=== PATIENT | female | born 1955 | race Caucasian/White ===

== ENCOUNTER 2021-07-15 16:12 | Emergency (ER) | payer MEDICARE, MEDICAID, SELFPAY ==
[2021-07-15 16:13] VITALS: BP 117/70; PULSE 84; RESP 18; TEMP 37.2; O2SAT 98; BMI 50.1
--- NOTE | 2021-07-15 16:55 | ED.VIS.DYS ---
HPI History of Present Illness Chief Complaint: Cough Narrative Narrative: 1 week history clear productive cough started wheezing at night. Denies history of asthma or COPD. Smoked back in 1970s. States bronchitis yearly. Denies fevers headache sore throat myalgias vomiting or diarrhea. Nonvaccinated for Covid. Denies any loss of taste or smell. History of rheumatoid arthritis on hydroxychloroquine and sulfasalazine. History of hypothyroidism. Patient recently moved to [facility].. Prior similar symptoms: Yes PFSH PFS Medical History (Updated 07/15/21 @ 17:[address] Will Carrillo DO) Hypothyroidism Rheumatoid arthritis Home Medications azithromycin 250 mg PO DAILY #4 tab 07/15/21 [Rx Last Taken Unknown] Allergy/AdvReac Type Severity Reaction Status Date / Time morphine Allergy Angioedema Verified 07/15/21 17:12 Social History Smoking Status: Former smoker ROS ROS ED Constitutional Constitutional ED: Denies chills, fever(s) or sweats Eyes Eyes: Denies change in vision ENT ENT ED: Denies dysphagia or sore throat Cardiovascular Cardiovascular: Denies chest pain, leg edema, palpitations or racing heartbeat Respiratory/Chest Respiratory/Chest: Reports cough; Denies dyspnea or dyspnea on exertion Gastrointestinal Gastrointestinal: Denies abdominal pain, diarrhea, nausea or vomiting Genitourinary Genitourinary ED: Denies dysuria, hematuria or urinary frequency Musculoskeletal Musculoskeletal: Denies back pain, extremity pain or neck pain Integumentary Denies rash or wounds Neurologic Neurologic: Denies headache(s), paresthesias or weakness EXAM Physical Exam Const Vital Signs: 07/15/21 16:13 07/15/21 17:13 Temperature 99.0 F Temperature Source Temporal Pulse Rate 84 Respiratory Rate 18 Respiratory Effort Normal Non-Labored Respiratory Depth Normal Respiratory Pattern Normal Blood Pressure 117/70 Blood Pressure Mean 85 Pulse Ox 98 Oxygen Delivery Method Room Air Positive well nourished and well developed Constitutional Narrative: Occasional coughing speaking in full sentences. No distress. General Appearance ED: well developed and NAD HEENT Reports moist mucous membranes normocephalic and atraumatic Eyes PERRL, EOMs intact bilaterally and conjunctivae normal General Eye ED: Yes normal appearance of both eyes Neck no lymphadenopathy and supple General: Negative for tenderness Chest Wall Chest: Negative for tenderness Resp normal respiratory effort and normal air movement Effort and Inspection: symmetric chest movement; Negative for respiratory distress Cardio regular rate, regular rhythm and no murmurs Peripheral Pulses: pulses 2+ throughout GI normal to inspection, nondistended, normoactive bowel sounds and non-tender Palpation: Negative for guarding or rebound tenderness present Back/Spine no CVA tenderness and no thoracic nor lumbar tenderness Extremity normal to inspection General Extremety ED: Negative for edema or tenderness General Extremity: Negative for edema Neuro oriented x3 and no sensory deficits noted Sensorium / Orientation: awake and alert Skin no rashes or lesions noted and no wounds MDM MDM MDM Narrative Medical decision making narrative: Patient vitals stable pulse ox 98%. Mild productive cough for a week. No other symptoms. Covid testing negative. Chest x-ray negative. With patient's immunosuppression history on medication secondary rheumatoid arthritis will cover with antibiotics. Zithromax started. With her wheezing complaints, MDI inhaler dispense with the patient to use. She states she does have a PCP. She will follow as an outpatient. All questions were answered. Radiography Chest X-Ray - ED: 1 View, Read by ED Physician and Read by Radiologist Diagnostic Testing: Clinical Impression(s) from Imaging Studies Chest X-Ray 07/15/21 17:04 IMPRESSION: Normal x-ray examination of the chest. Electronically Signed: Malorie Krause MD at 17:30 EDT Tel , Service support , Discharge Plan Triage Chief Complaint: Cough ED Provider: Will Carrillo Dx/Rx/DC Orders Clinical Impression: Acute bronchitis, Immunosuppression due to drug therapy, Rheumatoid arthritis Instructions: Acute Bronchitis Prescriptions: New azithromycin [azithromycin] 250 MG tablet 250 mg PO DAILY Qty: 4 RF: 0 Primary Care Provider: Care Physician,No Primary Referrals: Care Physician,No Primary [Primary Care Provider] - Activity Restrictions/Additional Instructions: Chest x-ray negative. Covid testing negative. Take medication as prescribed. Use inhaler every 4 hours 1 to 2 puffs as needed for wheezing. Follow-up with your doctor. Disposition Disposition: Home, Self Care
--- NOTE | 2021-07-15 17:04 | RAD_ITS ---
STUDY: X-RAY CHEST REASON FOR EXAM: Female, 66 years old. cough TECHNIQUE: Frontal portable view of the chest COMPARISON: None. FINDINGS: The lungs are clear and expanded. There is no demonstrated pleural abnormality. Normal size heart. Normal mediastinum and addison. Normal visualized pulmonary arteries. Normal visualized aortic arch and descending thoracic aorta. Normal visualized thoracic spine. Normal visualized ribs, clavicles, and shoulders. There is no demonstrated abnormality of the visualized soft tissue structures of the upper abdomen. RAD/Chest 1 View (Portable) IMPRESSION: Normal x-ray examination of the chest. Electronically Signed: Malorie Krause MD at 17:30 EDT Tel , Service support ,
[2021-07-15] MEDS: Azithromycin 250 MG Tablet 500 MG PO (17:54)
== END 2021-07-15 18:01 | disposition home or self-care (01) ==
PROVIDERS: Emergency Provider Emergency Medicine
DX: J20.9 Acute bronchitis, unspecified (principal); D84.821 Immunodeficiency due to drugs; M06.9 Rheumatoid arthritis, unspecified; Z79.899 Other long term (current) drug therapy; Z87.891 Personal history of nicotine dependence
CPT/HCPCS: 71045; 87426; 94640; 99283

== ENCOUNTER 2021-09-08 10:10 | Inpatient (IN) | payer MEDICARE, MEDICAID, SELFPAY ==
[2021-09-08] VITALS (14 sets, daily range): BP systolic 127–144; BP diastolic 69–85; PULSE 63–93; RESP 15–24; TEMP 36.6–37.1; O2SAT 84–96; BMI 49.2; BMI 47.5
--- NOTE | 2021-09-08 11:06 | EKG12_ITS ---
Test Reason : SOB Blood Pressure : / mmHG Vent. Rate : 088 BPM Atrial Rate : 088 BPM P-R Int : 134 ms QRS Dur : 076 ms QT Int : 376 ms P-R-T Axes : 005 -28 028 degrees QTc Int : 454 ms Normal sinus rhythm Normal ECG Confirmed by GABRIELLE MUJICA, CLARE ([id number]), script editor BOB EDGAR ([id number]) on 09/10/2021 10:19:51 AM Referred By: SERGEI Confirmed By:CLARE ANTHONY MD
--- NOTE | 2021-09-08 11:06 | RAD_ITS ---
History: cough EXAMINATION/TECHNIQUE: XR Chest 1 View: Portable COMPARISON: July 15, 2021 FINDINGS: LINES/DEVICES: None. LUNGS: Airspace opacification noted throughout the left lung and within the right upper lobe consistent with pneumonia. No pneumothorax. MEDIASTINUM AND CARDIOVASCULAR STRUCTURES: Cardiac silhouette not enlarged. Central airways and mediastinal contour are unremarkable. BONES AND SOFT TISSUES: Unremarkable. RAD/Chest 1 View (Portable) IMPRESSION: Bilateral pneumonia. at 1137 Reported and signed by: Trenton Arenas MD Electronically Signed: Trenton Arenas MD at 11:36 EST Tel , Service support ,
[2021-09-08 11:21] LABS: Absolute Lymphocyte Count 0.83 X10^3/uL (0.83-4.51); Absolute Neutrophil Count 4.7 X10^3/uL (2.0-7.7); Basophil# 0.01 X10^3/uL; Basophil% 0.2 % (0-1); Hematocrit 43.7 % (37-47); Hemoglobin 13.9 g/dL (12.0-15.0); Lymphocyte # 0.83 X10^3/ul (0.83-4.51); Lymphocyte % 13.9 % (19-41); Mean Corp Hgb Conc 31.8 g/dL (32-36); Mean Corpuscular Hgb 29.2 pg (27.0-32.0); Mean Corpuscular Volume 91.8 fL (81-99); Mean Platelet Vol. 10.9 fl (6.2-12.0); Monocyte# 0.34 X10^3/uL; Monocyte% 5.7 % (0-10); NRBC Flagged by Analyzer 0 % (0-5); Neutrophil # 4.65 X10^3/uL (2.7-7.7); Platelet Count 103 K/mm3 (150-450); RBC Distribution Width CV 14.3 % (11.6-14.6); RBC Distribution Width SD 48.4 fl (35.1-43.9); Red Blood Count 4.76 M/mm3 (4.2-5.4)
[2021-09-08 11:33] LABS: D-Dimer Quantitative (DVT/PE) 2.15 FEU/ug/m (0.27-0.49)
--- NOTE | 2021-09-08 11:34 | CT_ITS ---
EXAM: CT ANGIOGRAPHY CHEST WITHOUT AND WITH INTRAVENOUS CONTRAST : 1955 CLINICAL INDICATION: chest pain TECHNIQUE: Helically acquired angiography images were obtained of the chest without and with intravenous contrast. This CT exam was performed using one or more of the following dose reduction techniques: automated exposure control, adjustment of the mA and/or kV according to patient size, and/or use of iterative reconstruction technique. This report was created using [email or web address] report generation technology. MIP reconstructed images were created and reviewed. CONTRAST: IV 100mL [id number] COMPARISON: Chest radiograph September 08, 2021 FINDINGS: PULMONARY ARTERIES: Unremarkable. Normal in caliber. No evidence of pulmonary embolism. AORTA: Unremarkable. Normal in caliber. No evidence of dissection. GREAT VESSELS OF AORTIC ARCH: Unremarkable. Normal in caliber. No evidence of dissection. LUNGS AND PLEURAL SPACES: Airspace opacification noted within the lungs bilaterally consistent with pneumonia and compatible with Covid infection. No mass. No pleural effusion or thickening. HEART: Unremarkable. Heart size is normal. No pericardial effusion. No signs of right heart strain, ratio of right ventricle to left ventricle measures less than 1. MEDIASTINUM: A small hiatal hernia is present. No mediastinal or hilar adenopathy. Esophagus is unremarkable. THYROID: Unremarkable. No thyroid lesions. BONES/JOINTS: Unremarkable. No suspicious lytic or blastic abnormality. LIVER: Partially visualized liver and spleen appear prominent in size. GALLBLADDER AND BILE DUCTS: 2.5 cm calcified gallstone is noted. CT/CTA Chest W/WO Contrast IMPRESSION: 1. Bilateral pneumonia. 2. No evidence of acute pulmonary embolism. 3. Small hiatal hernia. 4. Cholelithiasis. 5. Hepatosplenomegaly. Individualized dose optimization techniques were used for this CT. at 1245 Reported and signed by: Trenton Arenas MD Electronically Signed: Trenton Arenas MD at 12:43 EST Tel , Service support ,
[2021-09-08 11:37] LABS: ALB/GLOB Ratio 0.7 RATIO (0.9-2.4); AST(SGOT) 57 U/L (15-37); Alanine Aminotransfer ALT/SGPT 63 U/L (13-56); Alkaline Phosphatase 50 U/L (45-117); Anion Gap 10 (5-15); BUN 13 mg/dL (7-18); BUN/Creat Ratio 13.1 RATIO (10-20); Calcium,Total 8.3 mg/dL (8.5-10.1); Chloride 105 mmol/L (98-107); EST Glomerular Filtration Rate 59 mL/min (>60); Est Glom Filt Rate - Afr Amer 72 mL/min (>60); Estimated Creatinine Clearance 41.19 ml/min; Globulin 4.2 g/dL (2.2-4.2); Glucose 104 mg/dL (74-106); Potassium 3.9 mmol/L (3.5-5.1); Protein, Total 7.2 g/dL (6.4-8.2); Sodium Level 140 mmol/L (136-145); Troponin-I HS 7 pg/mL (3.0-54.0)
--- NOTE | 2021-09-08 12:20 | NURSING ---
MED SURG [facility] 19 PNEUMONIA, HYPOXIC RESP FAILURE
[2021-09-08] MEDS: dexAMETHasone 10 MG/ML Vial 6 MG IV (12:35)
--- NOTE | 2021-09-08 13:43 | ED.VIS.DYS ---
HPI History of Present Illness Chief Complaint: Shortness of Breath Narrative Narrative: 66-year-old female presenting with cough, shortness of breath, fatigue. Patient not vaccinated for COVID-19 and has not previously had this. Patient states he has discomfort when she takes a deep breath. No history of DVT/PE. No nausea or vomiting. She denies diarrhea. She has not had abdominal pain. No urinary complaints. PFSH PFS Medical History Hypothyroidism Rheumatoid arthritis Home Medications desvenlafaxine succinate 50 mg PO DAILY 09/08/21 [History Last Taken Unknown] hydroxyzine HCl 25 mg PO QHS 09/08/21 [History Last Taken Unknown] leflunomide 10 mg PO DAILY 09/08/21 [History Last Taken Unknown] levothyroxine 25 mcg PO DAILY 09/08/21 [History Last Taken Unknown] levothyroxine 200 mcg PO DAILY 09/08/21 [History Last Taken Unknown] prednisone See Taper PO DAILY 09/08/21 [History Last Taken Unknown] trazodone 100 mg PO DAILY 09/08/21 [History Last Taken Unknown] Allergy/AdvReac Type Severity Reaction Status Date / Time morphine Allergy Angioedema Verified 09/08/21 10:13 Social History Smoking Status: Former smoker ROS ROS ED Constitutional Constitutional ED: Reports chills; Denies fever(s) or sweats Eyes Eyes: Denies blurry vision or change in vision ENT ENT ED: Reports rhinorrhea Cardiovascular Cardiovascular: Reports chest pain Respiratory/Chest Respiratory/Chest: Reports cough, dyspnea and dyspnea on exertion Gastrointestinal Gastrointestinal: Denies abdominal pain, nausea or vomiting Genitourinary Genitourinary ED: Denies dysuria or hematuria Musculoskeletal Musculoskeletal: Reports myalgias; Denies arthralgias or neck pain Integumentary Denies abscess or rash Neurologic Neurologic: Reports headache(s); Denies paresthesias or weakness EXAM Physical Exam Const Vital Signs: 09/08/21 10:10 09/08/21 10:14 09/08/21 10:15 Temperature 98.1 F Temperature Source Temporal Pulse Rate 93 Respiratory Rate 18 Respiratory Effort Short of Breath Respiratory Depth Normal Respiratory Pattern Normal Blood Pressure 144/69 H Blood Pressure Mean 94 Pulse Ox 84 92 Oxygen Delivery Method Room Air Nasal Cannula Nasal Cannula Oxygen Flow Rate (L/min) 2 2 09/08/21 11:29 09/08/21 12:25 09/08/21 13:00 Temperature 98 F 98 F Temperature Source Temporal Temporal Pulse Rate 73 78 84 Respiratory Rate 15 19 H 21 H Respiratory Effort Respiratory Depth Respiratory Pattern Blood Pressure 131/74 H 127/72 H 129/85 H Blood Pressure Mean 93 90 99 Pulse Ox 94 96 96 Oxygen Delivery Method Nasal Cannula Nasal Cannula Nasal Cannula Oxygen Flow Rate (L/min) 2 2 2 Positive well nourished General Appearance ED: NAD; Negative for pallor HEENT Reports dry mucous membranes Negative for atraumatic Mouth ED: Yes dry mucous membranes Mouth: dry mucous membranes Eyes PERRL and EOMs intact bilaterally Neck no lymphadenopathy, supple and no meningeal signs Resp normal respiratory effort and clear to auscultation bilaterally Cardio regular rate and regular rhythm GI non-tender and non-distended Palpation: soft Psych mental status grossly normal Thought Process: normal thought process Skin General Skin Exam: Negative for jaundice or pallor Rashes: no rashes MDM MDM MDM Narrative Medical decision making narrative: Patient presenting with cough, shortness of breath. She tested positive for COVID-19 today. This is day 3 and she is already hypoxic down to 84% on room air. She is placed on 2 L and has been stable. EKG performed on arrival shows a sinus rhythm with a ventricular rate of 88 bpm without sign of ischemic change. Chest x-ray my interpretation shows bilateral pulmonary infiltrates. Radiologist does agree. CBC shows no leukocytosis. Hemoglobin factor stable. LFTs are normal with exception of an AST of 57 and ALT of 63. Electrolytes are normal. Renal function is normal. CTA of the chest is performed due to elevated D-dimer 2.15 and this does not show any pulmonary emboli or dissection but does note bilateral pulmonary infiltrates as interpreted by the radiologist. Patient is given dexamethasone due to her hypoxia. Discussed with hospitalist for admission. Impression: 1. COVID-19 meningitis 2. Hypoxic respiratory failure Lab Data Attestation: I reviewed the patient's lab results. Labs: Laboratory Results - last 24 hr 09/08/21 09/08/21 09/08/21 10:17 10:17 10:17 WBC 6.0 RBC 4.76 Hgb 13.9 Hct 43.7 MCV 91.8 MCH 29.2 MCHC 31.8 L RDW Std Deviation 48.4 H RDW Coeff of Silvano 14.3 Plt Count 103 L MPV 10.9 Immature Gran % (Auto) 2.200 H Neut % (Auto) 78.0 H Lymph % (Auto) 13.9 L Coffey % (Auto) 5.7 Eos % (Auto) 0.0 Baso % (Auto) 0.2 Absolute Neuts (auto) 4.7 Absolute Lymphs (auto) 0.83 Nucleated RBC % 0 D-Dimer Quant (PE/DVT) 2.15 H* Sodium 140 Potassium 3.9 Chloride 105 Carbon Dioxide 25.0 Anion Gap 10 BUN 13 Creatinine 1.00 Estim Creat Clear Calc 41.19 Est GFR (MDRD) Af Amer 72 Est GFR (MDRD) Non-Af 59 L BUN/Creatinine Ratio 13.1 Glucose 104 Calcium 8.3 L Total Bilirubin 0.80 AST 57 H ALT 63 H Alkaline Phosphatase 50 Troponin I High Sens 7 Total Protein 7.2 Albumin 3.0 L Globulin 4.2 Albumin/Globulin Ratio 0.7 L Radiography Diagnostic Testing: Clinical Impression(s) from Imaging Studies Chest X-Ray 09/08/21 11:06 IMPRESSION: Bilateral pneumonia. at 1137 Reported and signed by: Trenton Arenas MD Electronically Signed: Trenton Arenas MD at 11:36 EST Tel , Service support , Chest CTA 09/08/21 11:34 IMPRESSION: 1. Bilateral pneumonia. 2. No evidence of acute pulmonary embolism. 3. Small hiatal hernia. 4. Cholelithiasis. 5. Hepatosplenomegaly. Individualized dose optimization techniques were used for this CT. at 1245 Reported and signed by: Trenton Arenas MD Electronically Signed: Trenton Arenas MD at 12:43 EST Tel , Service support , Discharge Plan Triage Chief Complaint: Shortness of Breath ED Provider: August Colon Dx/Rx/DC Orders Prescriptions: No Action prednisone 10 mg tablet See Taper mg PO DAILY RF: 0 leflunomide 10 mg tablet 10 mg PO DAILY RF: 0 levothyroxine 25 mcg tablet 25 mcg PO DAILY RF: 0 trazodone 100 mg tablet 100 mg PO DAILY RF: 0 hydroxyzine HCl 25 mg tablet 25 mg PO QHS RF: 0 levothyroxine 200 mcg tablet 200 mcg PO DAILY RF: 0 desvenlafaxine succinate 50 mg tablet extended release 24 hr 50 mg PO DAILY RF: 0 Primary Care Provider: Care Physician,No Primary
--- NOTE | 2021-09-08 15:39 | HP.PCM.HOS_ITS ---
HPI - General General Date of Admission: 09/08/21 Date of Service: 09/08/21 Chief Complaint: Shortness of breath ongoing for 1 week HPI Narrative DEACON RENEE, is a 66 F who presents with the above. Patient is unvaccinated. Comes in with progressive shortness of breath and cough. Denied any fever or chills. Denied any diarrhea. She has been progressively very weak and was brought to the ED by the boyfriend. Patient's vitals are stable. WBC count is 6.0. D-dimer was elevated at 2.15. CMP was unremarkable. Chest x-ray shows bilateral infiltrates. CTAof the chest is negative for acute PE FOR[facility]LY [facility], [facility]1983 Medical History Hypothyroidism Rheumatoid arthritis Home Medications desvenlafaxine succinate 50 mg PO DAILY 09/08/21 [History Last Taken Unknown] hydroxyzine HCl 25 mg PO QHS 09/08/21 [History Last Taken Unknown] leflunomide 10 mg PO DAILY 09/08/21 [History Last Taken Unknown] levothyroxine 25 mcg PO DAILY 09/08/21 [History Last Taken Unknown] levothyroxine 200 mcg PO DAILY 09/08/21 [History Last Taken Unknown] prednisone See Taper PO DAILY 09/08/21 [History Last Taken Unknown] trazodone 100 mg PO DAILY 09/08/21 [History Last Taken Unknown] Allergy/AdvReac Type Severity Reaction Status Date / Time morphine Allergy Angioedema Verified 09/08/21 10:13 Surgical History no surgical history no surgical history Social History (Updated 09/08/21 @ 15:[address] Sandra Lim MD) Smoking Status: Former smoker alcohol intake: never substance use type: does not use ROS ROS Narrative Constitutional: Reports: Malaise, Weakness, Fatigue. Denies: Anorexia, Chills, Fever, Night Sweats, Weight Change Eyes: Denies: Blurred vision, Cataracts, Conjunctivae Inflammation, Pain, Redness, Vision Change HEENT: Denies: Difficulty Hearing, Difficulty Swallowing, Head Aches, Hearing Changes, Sinus Congestion, Sinus Drainage Cardiovascular: Denies: Chest Pain, Orthopnea, Palpitations Respiratory: Admits to: cough, Shortness of breath at rest, Sputum production Gastrointestinal: Denies: Abdominal Pain, Nausea, Vomiting Genitourinary: Denies: Dysuria Musculoskeletal: Denies: Joint Pain, Joint stiffness, Joint swelling, Joint Tenderness Skin: Denies: Rash, Wounds Neurological: Denies: Numbness, Tingling, Focal weakness Vital Signs Vital Signs Vital Signs: 09/08/21 10:10 09/08/21 10:14 09/08/21 10:15 Temperature 98.1 F Temperature Source Temporal Pulse Rate 93 Respiratory Rate 18 Respiratory Effort Short of Breath Respiratory Depth Normal Respiratory Pattern Normal Blood Pressure 144/69 H Blood Pressure Mean 94 Pulse Ox 84 92 Oxygen Delivery Method Room Air Nasal Cannula Nasal Cannula Oxygen Flow Rate (L/min) 2 2 09/08/21 11:29 09/08/21 12:25 09/08/21 13:00 Temperature 98 F 98 F Temperature Source Temporal Temporal Pulse Rate 73 78 84 Respiratory Rate 15 19 H 21 H Respiratory Effort Respiratory Depth Respiratory Pattern Blood Pressure 131/74 H 127/72 H 129/85 H Blood Pressure Mean 93 90 99 Pulse Ox 94 96 96 Oxygen Delivery Method Nasal Cannula Nasal Cannula Nasal Cannula Oxygen Flow Rate (L/min) 2 2 2 09/08/21 14:00 09/08/21 15:23 Temperature Temperature Source Pulse Rate 71 88 Respiratory Rate 17 24 H Respiratory Effort Respiratory Depth Respiratory Pattern Blood Pressure 134/77 H 138/76 H Blood Pressure Mean 96 96 Pulse Ox 92 93 Oxygen Delivery Method Room Air Nasal Cannula Oxygen Flow Rate (L/min) 3 Weight Weight: 118.3 kg Body Mass Index (BMI) 49.2 Physical Exam Narrative Physical exam: General: Alert, Oriented x3, Cooperative, appears tired HEENT: Atraumatic Oral: Moist Mucosa Neck: Supple Lungs: Diminished to auscultation Cardiovascular: HS I+II, regular, no murmurs Abdomen: Bowel Sounds Present, Soft, Non Tender Extremities: No edema Results Lab / Micro Data Result Diagrams: 09/08/21 10:17 09/08/21 10:17 Labs: Laboratory Results - last 24 hr 09/08/21 10:17: WBC 6.0, RBC 4.76, Hgb 13.9, Hct 43.7, MCV 91.8, MCH 29.2, MCHC 31.8 L, RDW Std Deviation 48.4 H, RDW Coeff of Silvano 14.3, Plt Count 103 L, MPV 10.9, Immature Gran % (Auto) 2.200 H, Neut % (Auto) 78.0 H, Lymph % (Auto) 13.9 L, Mclennan % (Auto) 5.7, Eos % (Auto) 0.0, Baso % (Auto) 0.2, Absolute Neuts (auto) 4.7, Absolute Lymphs (auto) 0.83, Nucleated RBC % 0 09/08/21 10:17: D-Dimer Quant (PE/DVT) 2.15 H* 09/08/21 10:17: Sodium 140, Potassium 3.9, Chloride 105, Carbon Dioxide 25.0, Anion Gap 10, BUN 13, Creatinine 1.00, Estim Creat Clear Calc 41.19, Est GFR (MDRD) Af Amer 72, Est GFR (MDRD) Non-Af 59 L, BUN/Creatinine Ratio 13.1, Glucose 104, Calcium 8.3 L, Total Bilirubin 0.80, AST 57 H, ALT 63 H, Alkaline Phosphatase 50, Troponin I High Sens 7, Total Protein 7.2, Albumin 3.0 L, Globulin 4.2, Albumin/Globulin Ratio 0.7 L Micro: Microbiology 09/08/21 10:35 Nasal Secretion SARS-CoV-2 Antigen (Rapid) - Final SARS-CoV-2 (COVID 19) Radiology Impression Chest X-Ray 09/08/21 11:06 IMPRESSION: Bilateral pneumonia. at 1137 Reported and signed by: Trenton Arenas MD Electronically Signed: Trenton Arenas MD at 11:36 EST Tel , Service support , Chest CTA 09/08/21 11:34 IMPRESSION: 1. Bilateral pneumonia. 2. No evidence of acute pulmonary embolism. 3. Small hiatal hernia. 4. Cholelithiasis. 5. Hepatosplenomegaly. Individualized dose optimization techniques were used for this CT. at 1245 Reported and signed by: Trenton Arenas MD Electronically Signed: Trenton Arenas MD at 12:43 EST Tel , Service support , Assessment & Plan Assessment/Plan (1) Acute respiratory failure with hypoxia: (2) Pneumonia due to COVID-19 virus: (3) Debility: PLAN: 1. Acute hypoxic respiratory failure secondary to acute COVID-19 pneumonia Patient is unvaccinated; symptoms started about a week ago Chest x-ray and CTA of the chest shows bilateral infiltrates Started on IV Decadron Continue on remdesivir and Decadron Encourage use of incentive spirometer 2. Rheumatoid arthritis, continue on leflunomide 3. Rest of chronic medical condition including hypothyroidism, anxiety/ depression remain stable Continue on levothyroxine, desvenlafaxine, trazodone Charges/Coding Visit Charges Inpatient E&M: 04518 Init Hosp L3
--- NOTE | 2021-09-08 19:12 | PCS.PANDOC ---
PANDEMIC DOCUMENTATION INITIATED: Date: 09/08/2021 Time: 1900
[2021-09-08] MEDS: 0.9% Saline Lock 10 ML Syringe IV (21:35)
[2021-09-08] MEDS: hydrOXYzine PAM 25 MG Capsule PO (21:35)
[2021-09-09] VITALS (7 sets, daily range): BP systolic 135–151; BP diastolic 67–79; PULSE 69–80; RESP 18; TEMP 36.7–36.9; O2SAT 93–94
[2021-09-09] MEDS: guaiFENesin 10 ML UDC (200MG/10ML) PO ×2 (04:27→21:54)
[2021-09-09 08:48] LABS: Absolute Lymphocyte Count 0.54 X10^3/uL (0.83-4.51); Absolute Neutrophil Count 4.6 X10^3/uL (2.0-7.7); Basophil# 0.02 X10^3/uL; Basophil% 0.4 % (0-1); Hematocrit 41.8 % (37-47); Lymphocyte # 0.54 X10^3/ul (0.83-4.51); Lymphocyte % 9.7 % (19-41); Mean Corp Hgb Conc 33.5 g/dL (32-36); Mean Corpuscular Hgb 29.5 pg (27.0-32.0); Mean Corpuscular Volume 88.2 fL (81-99); Mean Platelet Vol. 11.3 fl (6.2-12.0); Monocyte# 0.32 X10^3/uL; Monocyte% 5.7 % (0-10); NRBC Flagged by Analyzer 0 % (0-5); Neutrophil # 4.58 X10^3/uL (2.7-7.7); Neutrophil % 81.9 % (47-70); POSITIVE DIFFERENTIAL YES; Platelet Count 124 K/mm3 (150-450); RBC Distribution Width CV 13.9 % (11.6-14.6); RBC Distribution Width SD 45.6 fl (35.1-43.9); Red Blood Count 4.74 M/mm3 (4.2-5.4); White Blood Count 5.6 K/mm3 (4.4-11.0)
[2021-09-09 08:56] LABS: Differential Indicated SCAN CRITERIA MET
[2021-09-09 09:16] LABS: Differential Comment SCANNED
[2021-09-09 09:17] LABS: ALB/GLOB Ratio 0.7 RATIO (0.9-2.4); AST(SGOT) 36 U/L (15-37); Alanine Aminotransfer ALT/SGPT 55 U/L (13-56); Alkaline Phosphatase 48 U/L (45-117); Anion Gap 10 (5-15); BUN 17 mg/dL (7-18); BUN/Creat Ratio 21.3 RATIO (10-20); Calcium,Total 8.4 mg/dL (8.5-10.1); Chloride 108 mmol/L (98-107); EST Glomerular Filtration Rate 76 mL/min (>60); Est Glom Filt Rate - Afr Amer 92 mL/min (>60); Estimated Creatinine Clearance 51.49 ml/min; Globulin 4.3 g/dL (2.2-4.2); Glucose 142 mg/dL (74-106); Potassium 3.8 mmol/L (3.5-5.1); Protein, Total 7.3 g/dL (6.4-8.2); Sodium Level 140 mmol/L (136-145)
[2021-09-09] MEDS: Venlafaxine XR 37.5 MG Capsule PO (09:45)
[2021-09-09] MEDS: 0.9% Saline Lock 10 ML Syringe IV (09:45)
[2021-09-09] MEDS: Leflunomide 10 MG TABLET PO (09:45)
[2021-09-09] MEDS: dexAMETHasone 4 MG Tablet 6 MG PO (09:46)
[2021-09-09] MEDS: Levothyroxine 100 MCG Tablet 200 MCG PO (09:46)
[2021-09-09] MEDS: traZODone 100 MG Tablet PO (09:46)
[2021-09-09] MEDS: Levothyroxine 25 MCG TABLET PO (09:46)
--- NOTE | 2021-09-09 11:53 | PN.HOSP_ITS ---
Subjective Subjective Follow-up on acute hypoxic respiratory failure/acute COVID-19 pneumonia: Patient was seen and examined. Denied any new complaints. She remains on 3 L of oxygen. Objective Data Objective Data Vital Signs: Vital Signs Temp Pulse Resp BP Pulse Ox 98.0 F 79 18 135/67 H 93 09/09/21 09:35 09/09/21 09:35 09/09/21 09:39 09/09/21 09:35 09/09/21 09:35 Oxygen Flow Rate (L/min) 3 Oxygen Delivery Method Nasal Cannula Weight: 114.4 kg Body Mass Index (BMI) 47.5 Intake & Output: Intake and Output for Last 24 Hours 09/07/21 09/08/21 09/09/21 23:59 23:59 23:59 Intake Total 250 / 250 250 / 250 Output Total 700 / 700 Balance 250 / -250 -450 / -450 Lab / Micro Data Result Diagrams: 09/09/21 08:34 09/09/21 08:34 Labs: Laboratory Results - last 24 hr 09/09/21 08:34: WBC 5.6, RBC 4.74, Hgb 14.0, Hct 41.8, MCV 88.2, MCH 29.5, MCHC 33.5 D, RDW Std Deviation 45.6 H, RDW Coeff of Silvano 13.9, Plt Count 124 L, MPV 11.3, Immature Gran % (Auto) 2.300 H, Neut % (Auto) 81.9 H, Lymph % (Auto) 9.7 L , [place] % (Auto) 5.7, Eos % (Auto) 0.0, Baso % (Auto) 0.4, Absolute Neuts (auto) 4.6, Absolute Lymphs (auto) 0.54 L, Nucleated RBC % 0, Differential Comment SCANNED 09/09/21 08:34: Sodium 140, Potassium 3.8, Chloride 108 H, Carbon Dioxide 22.0, Anion Gap 10, BUN 17, Creatinine 0.80, Estim Creat Clear Calc 51.49, Est GFR (MDRD) Af Amer 92, Est GFR (MDRD) Non-Af 76, BUN/Creatinine Ratio 21.3 H, Glucose 142 H, Calcium 8.4 L, Total Bilirubin 0.50, AST 36, ALT 55, Alkaline Phosphatase 48, Total Protein 7.3, Albumin 3.0 L, Globulin 4.3 H, Albumin/Globulin Ratio 0.7 L Micro: Microbiology 09/09/21 00:22 Urine, Clean Catch Legionella Antigen - Final 09/09/21 00:22 Urine, Clean Catch Streptococcus pneumoniae Antigen (M - Final 09/08/21 20:00 Mucosa - Nasopharyngeal Respiratory Panel (PCR) - Final 09/08/21 10:35 Nasal Secretion SARS-CoV-2 Antigen (Rapid) - Final SARS-CoV-2 (COVID 19) Radiography Diagnostic Testing: Radiology Impression Chest CTA 09/08/21 11:34 IMPRESSION: 1. Bilateral pneumonia. 2. No evidence of acute pulmonary embolism. 3. Small hiatal hernia. 4. Cholelithiasis. 5. Hepatosplenomegaly. Individualized dose optimization techniques were used for this CT. at 1245 Reported and signed by: Trenton Arenas MD Electronically Signed: Trenton Arenas MD at 12:43 EST Tel , Service support , Physical Exam Narrative Physical exam: General: Alert, Oriented x3, Cooperative, appears tired, Morbidly obese HEENT: Atraumatic Oral: Moist Mucosa Neck: Supple Lungs: Diminished to auscultation Cardiovascular: HS I+II, regular, no murmurs Abdomen: Bowel Sounds Present, Soft, Non Tender Extremities: No edema Assessment & Plan Assessment/Plan (1) Acute respiratory failure with hypoxia: (2) Pneumonia due to COVID-19 virus: (3) Debility: PLAN: 1. Acute hypoxic respiratory failure secondary to acute COVID-19 pneumonia Remains on 3 L of oxygen Patient is unvaccinated; symptoms started about a week ago Chest x-ray and CTA of the chest shows bilateral infiltrates Continue on remdesivir and Decadron Encourage use of incentive spirometer 2. Rheumatoid arthritis, continue on leflunomide 3. Rest of chronic medical condition including hypothyroidism, anxiety/depressi on remain stable Continue on levothyroxine, desvenlafaxine, trazodone 4. Morbidly obese, BMI 47.7, lifestyle modification recommended Charges/Coding Visit Charges Inpatient E&M: 96613 Subs Hosp L2
[2021-09-09] MEDS: hydrOXYzine PAM 25 MG Capsule PO (21:53)
[2021-09-09] MEDS: Acetaminophen 325 MG Tablet 650 MG PO (21:54)
[2021-09-10] MEDS: guaiFENesin 1,200 MG Tablet 1200 MG PO ×3 (01:55→20:40)
[2021-09-10 02:02] VITALS: BP 111/78; PULSE 87; RESP 16; TEMP 36.6; O2SAT 95
[2021-09-10 07:19] LABS: Absolute Lymphocyte Count 0.76 X10^3/uL (0.83-4.51); Basophil# 0.02 X10^3/uL; Basophil% 0.4 % (0-1); Hematocrit 42.3 % (37-47); Hemoglobin 13.7 g/dL (12.0-15.0); Lymphocyte # 0.76 X10^3/ul (0.83-4.51); Lymphocyte % 13.9 % (19-41); Mean Corp Hgb Conc 32.4 g/dL (32-36); Mean Corpuscular Hgb 29.4 pg (27.0-32.0); Mean Corpuscular Volume 90.8 fL (81-99); Mean Platelet Vol. 11.4 fl (6.2-12.0); Monocyte# 0.42 X10^3/uL; Monocyte% 7.7 % (0-10); NRBC Flagged by Analyzer 0 % (0-5); Neutrophil % 73.4 % (47-70); Platelet Count 144 K/mm3 (150-450); RBC Distribution Width SD 47.2 fl (35.1-43.9); Red Blood Count 4.66 M/mm3 (4.2-5.4); White Blood Count 5.5 K/mm3 (4.4-11.0)
[2021-09-10 07:52] LABS: ALB/GLOB Ratio 0.7 RATIO (0.9-2.4); AST(SGOT) 33 U/L (15-37); Alanine Aminotransfer ALT/SGPT 52 U/L (13-56); Albumin, Serum 2.9 g/dL (3.2-5.0); Alkaline Phosphatase 45 U/L (45-117); Anion Gap 6 (5-15); BUN 20 mg/dL (7-18); BUN/Creat Ratio 23.1 RATIO (10-20); Calcium,Total 8.7 mg/dL (8.5-10.1); Chloride 110 mmol/L (98-107); Creatinine, Serum 0.86 mg/dL (0.55-1.02); EST Glomerular Filtration Rate 69 mL/min (>60); Est Glom Filt Rate - Afr Amer 84 mL/min (>60); Glucose 162 mg/dL (74-106); Potassium 4.3 mmol/L (3.5-5.1); Protein, Total 6.9 g/dL (6.4-8.2); Sodium Level 142 mmol/L (136-145)
[2021-09-10 07:58] VITALS: BP 137/68; PULSE 63; RESP 20; TEMP 36.7; O2SAT 90
[2021-09-10] MEDS: dexAMETHasone 4 MG Tablet 6 MG PO (08:14)
[2021-09-10] MEDS: traZODone 100 MG Tablet PO (08:15)
[2021-09-10] MEDS: Venlafaxine XR 37.5 MG Capsule PO (08:16)
[2021-09-10] MEDS: Leflunomide 10 MG TABLET PO (08:17)
[2021-09-10] MEDS: Levothyroxine 100 MCG Tablet 200 MCG PO (08:18)
[2021-09-10] MEDS: Levothyroxine 25 MCG TABLET PO (08:19)
--- NOTE | 2021-09-10 12:28 | CASEMGMT ---
LEOBARDO HUTCHINSON Assessment: Face to Face with pt for initial transition planning/care coordination assessment. LEOBARDO HUTCHINSON introduced self and role at [facility], pt voices understanding and consents to assessment. Pt is A/O x4 and answers all questions appropriately at this time. Pt sitting up in bed with O2 on in no distress. Care providers, pharmacy, and demographics verified/updated. Admitting Dx: COVID PCP:Janelle at [facility], pt just established at beginning of the month. Specialists:[facility] Preferred Pharmacy: [facility] [place] Insurance: [facility] Prescription Benefit: yes LW/HPOA: Pt denies having a LW/DPOA and denies need for info regarding AD. LNOK: [place], sig other Living Arrangements: Pt lives with sig other in a second story apartment. Pt has 3 steps to get on porch then 10 more steps to platform followed by 3 more steps . Once pt in apt, pt living quarters are on one level. Pt states she was I in ADL's and denies concerns at home. Transportation: Pt drives self and denies concerns with transportation. DME/HHC/SNF: Pt has a BSC, rollator in the car for times of need when out. Pt denies hx of HHC or SNF stays. Pt states she was first tested for COVID at [facility]. Her sig other has had COVID in the past and she states she can quarantine from him by using separate bedrooms but they only have one bathroom. Discussed local in network DME companies should pt need home O2, pt has no preference of provider. Pt states no concerns with going home at time of dc. She states her sig other is now working and they plan to look for another apt that does not have steps to enter. Pt states no further concerns/needs. CM to follow. Advised pt to ask CM if any further question/concerns/needs arise, voices understanding. Pt Goal: Home Plan: Home
--- NOTE | 2021-09-10 13:41 | PN.HOSP_ITS ---
Subjective Subjective Patient is a 66-year-old lady admitted with progressive shortness of breath diagnosed with COVID-19 pneumonia Objective Data Objective Data Vital Signs: Vital Signs Temp Pulse Resp BP Pulse Ox 98.0 F 63 20 H 137/68 H 90 09/10/21 07:58 09/10/21 07:58 09/10/21 07:58 09/10/21 07:58 09/10/21 07:58 Oxygen Flow Rate (L/min) 2 Oxygen Delivery Method Nasal Cannula Weight: 116.664 kg Body Mass Index (BMI) 47.5 Intake & Output: Intake and Output for Last 24 Hours 09/08/21 09/09/21 09/10/21 23:59 23:59 23:59 Intake Total 250 / 250 500 / 500 240 / 240 Output Total 700 / 700 Balance 250 / -250 -200 / -200 240 / 240 Lab / Micro Data Result Diagrams: 09/10/21 06:56 09/10/21 06:56 Labs: Laboratory Results - last 24 hr 09/10/21 06:56: WBC 5.5, RBC 4.66, Hgb 13.7, Hct 42.3, MCV 90.8, MCH 29.4, MCHC 32.4, RDW Std Deviation 47.2 H, RDW Coeff of Silvano 14.0, Plt Count 144 L, MPV 11.4, Immature Gran % (Auto) 4.600 H, Neut % (Auto) 73.4 H, Lymph % (Auto) 13.9 L, [place] % (Auto) 7.7, Eos % (Auto) 0.0, Baso % (Auto) 0.4, Absolute Neuts (auto) 4.0, Absolute Lymphs (auto) 0.76 L, Nucleated RBC % 0 09/10/21 06:56: Sodium 142, Potassium 4.3, Chloride 110 H, Carbon Dioxide 26.0, Anion Gap 6, BUN 20 H, Creatinine 0.86, Estim Creat Clear Calc 47.90, Est GFR (MDRD) Af Amer 84, Est GFR (MDRD) Non-Af 69, BUN/Creatinine Ratio 23.1 H, Glucose 162 H, Calcium 8.7, Total Bilirubin 0.50, AST 33, ALT 52, Alkaline Phosphatase 45, Total Protein 6.9, Albumin 2.9 L, Globulin 4.0, Albumin/Globulin Ratio 0.7 L Micro: Microbiology 09/09/21 00:22 Urine, Clean Catch Legionella Antigen - Final 09/09/21 00:22 Urine, Clean Catch Streptococcus pneumoniae Antigen (M - Final 09/08/21 20:00 Mucosa - Nasopharyngeal Respiratory Panel (PCR) - Final 09/08/21 10:35 Nasal Secretion SARS-CoV-2 Antigen (Rapid) - Final SARS-CoV-2 (COVID 19) Physical Exam Narrative GENERAL: cooperative HEENT: Atraumatic; EYES; Anicteric, Normal Conjunctiva NECK; supple, normal thyroid, RESPIRATORY: Diminished to auscultation CARDIOVASCULAR: Regular S1 S2, GI: soft, normoactive bowel sounds, : No Renal angle tenderness; EXTREMITIES: No edema, no clubbing, MUSCULOSKELETAL: no muscle waisting NEURO: Awake; no lateralizing signs. SKIN: No Rash PSYCH; Flat affect Assessment & Plan Assessment/Plan (1) Acute respiratory failure with hypoxia: (2) Pneumonia due to COVID-19 virus: (3) Debility: PLAN: Patient is a 66-year-old lady admitted with progressive shortness of breath diagnosed with COVID-19 pneumonia 1. Acute hypoxic respiratory failure -secondary to COVID-19 pneumonia admitted to regular nursing floor currently being managed with remdesivir and Decadron in addition to supplemental oxygen 2. Rheumatoid arthritis ?Patient is on leflunomide did continue 3. Hypothyroidism - Patient is on levothyroxine home dose continued 4. Class III obesity with BMI of 40.6 ?Weight loss advised 5. Depression with anxiety ?Patient is on SNRI in addition to trazodone did continue 7. DVT prophylaxis ?Lovenox Advance planning; did discuss with the patient regarding advanced directives as well as CODE STATUS. Did explain the various scenarios involved ( FULL CODE, DNR CCA, DNR CCA with no intubation, and DNR CC and what each meant) patient elected to full code with CPR and intubation if needed. Order was placed. Time spent on discussion 18 minutes. Charges/Coding Visit Charges Inpatient E&M: 70638 Subs Hosp L3 Procedures Hospitalists Procedures: 55418 Advncd Care Plan 30 Min
[2021-09-10 14:00] VITALS: PULSE 80; RESP 18; TEMP 36.6; O2SAT 93
[2021-09-10 20:33] VITALS: BP 139/67; PULSE 77; RESP 18; TEMP 36.4; O2SAT 92
[2021-09-10] MEDS: Enoxaparin 40 MG/0.4 ML Syringe SC (20:40)
[2021-09-10] MEDS: hydrOXYzine PAM 25 MG Capsule PO (20:40)
[2021-09-11] VITALS (7 sets, daily range): BP systolic 113–141; BP diastolic 62–69; PULSE 57–76; RESP 18; TEMP 36.6–36.8; O2SAT 88–95
[2021-09-11 07:16] LABS: Hematocrit 40.9 % (37-47); Hemoglobin 13.3 g/dL (12.0-15.0); Mean Corp Hgb Conc 32.5 g/dL (32-36); Mean Corpuscular Hgb 29.6 pg (27.0-32.0); Mean Corpuscular Volume 91.1 fL (81-99); Mean Platelet Vol. 11.5 fl (6.2-12.0); POSITIVE COUNT YES; POSITIVE MORPHOLOGY YES; Platelet Count 156 K/mm3 (150-450); RBC Distribution Width SD 47.3 fl (35.1-43.9); Red Blood Count 4.49 M/mm3 (4.2-5.4); White Blood Count 5.2 K/mm3 (4.4-11.0)
--- NOTE | 2021-09-11 07:22 | PCM.PN.HOSP ---
Subjective Subjective Patient seen able to maintain adequate oxygen saturation. Plan is for patient to be assessed for possible discharge home with a 6-minute walk Objective Data Objective Data Vital Signs: Vital Signs Temp Pulse Resp BP Pulse Ox 97.8 F 57 L 18 141/63 H 92 09/11/21 02:50 09/11/21 02:50 09/11/21 02:50 09/11/21 02:50 09/11/21 02:50 Oxygen Flow Rate (L/min) 3 Oxygen Delivery Method Nasal Cannula Weight: 108 kg Body Mass Index (BMI) 47.5 Intake & Output: Intake and Output for Last 24 Hours 09/09/21 09/10/21 09/11/21 23:59 23:59 23:59 Intake Total 500 / 500 790 / 790 500 / 500 Output Total 700 / 700 500 / 500 Balance -200 / -200 790 / 790 0 / 0 Lab / Micro Data Result Diagrams: 09/11/21 06:50 09/11/21 06:50 Labs: Laboratory Results - last 24 hr 09/10/21 06:56: Sodium 142, Potassium 4.3, Chloride 110 H, Carbon Dioxide 26.0, Anion Gap 6, BUN 20 H, Creatinine 0.86, Estim Creat Clear Calc 47.90, Est GFR (MDRD) Af Amer 84, Est GFR (MDRD) Non-Af 69, BUN/Creatinine Ratio 23.1 H, Glucose 162 H, Calcium 8.7, Total Bilirubin 0.50, AST 33, ALT 52, Alkaline Phosphatase 45, Total Protein 6.9, Albumin 2.9 L, Globulin 4.0, Albumin/Globulin Ratio 0.7 L Micro: Microbiology 09/09/21 00:22 Urine, Clean Catch Legionella Antigen - Final 09/09/21 00:22 Urine, Clean Catch Streptococcus pneumoniae Antigen (M - Final 09/08/21 20:00 Mucosa - Nasopharyngeal Respiratory Panel (PCR) - Final 09/08/21 10:35 Nasal Secretion SARS-CoV-2 Antigen (Rapid) - Final SARS-CoV-2 (COVID 19) Physical Exam Narrative GENERAL: cooperative HEENT: Atraumatic; EYES; Anicteric, Normal Conjunctiva NECK; supple, normal thyroid, RESPIRATORY: Diminished to auscultation CARDIOVASCULAR: Regular S1 S2, GI: soft, normoactive bowel sounds, : No Renal angle tenderness; EXTREMITIES: No edema, no clubbing, MUSCULOSKELETAL: no muscle waisting NEURO: Awake; no lateralizing signs. SKIN: No Rash PSYCH; Flat affect Assessment & Plan Assessment/Plan (1) Acute respiratory failure with hypoxia: (2) Pneumonia due to COVID-19 virus: (3) Debility: PLAN: Patient is a 66-year-old lady admitted with progressive shortness of breath diagnosed with COVID-19 pneumonia 1. Acute hypoxic respiratory failure -secondary to COVID-19 pneumonia admitted to regular nursing floor currently being managed with remdesivir and Decadron in addition to supplemental oxygen -09/11/2021; Patient seen able to maintain adequate oxygen saturation. Plan is for patient to be assessed for possible discharge home with a 6-minute walk 2. Rheumatoid arthritis ?Patient is on leflunomide did continue 3. Hypothyroidism - Patient is on levothyroxine home dose continued 4. Class III obesity with BMI of 40.6 ?Weight loss advised 5. Depression with anxiety ?Patient is on SNRI in addition to trazodone did continue 7. DVT prophylaxis ?Lovenox Charges/Coding Visit Charges Inpatient E&M: 31376 Subs Hosp L2
[2021-09-11 07:23] LABS: Differential Indicated MANUAL DIFF
[2021-09-11 07:47] LABS: ALB/GLOB Ratio 0.7 RATIO (0.9-2.4); AST(SGOT) 24 U/L (15-37); Alanine Aminotransfer ALT/SGPT 42 U/L (13-56); Albumin, Serum 2.6 g/dL (3.2-5.0); Alkaline Phosphatase 40 U/L (45-117); Anion Gap 4 (5-15); BUN 19 mg/dL (7-18); BUN/Creat Ratio 23.7 RATIO (10-20); Calcium,Total 8.6 mg/dL (8.5-10.1); Chloride 113 mmol/L (98-107); EST Glomerular Filtration Rate 76 mL/min (>60); Est Glom Filt Rate - Afr Amer 92 mL/min (>60); Estimated Creatinine Clearance 51.49 ml/min; Globulin 3.5 g/dL (2.2-4.2); Glucose 195 mg/dL (74-106); Magnesium 2.2 mg/dL (1.6-2.6); Potassium 4.2 mmol/L (3.5-5.1); Protein, Total 6.1 g/dL (6.4-8.2); Sodium Level 142 mmol/L (136-145)
--- NOTE | 2021-09-11 08:05 | PCM.DC.SUM ---
Providers Date of Admission: 09/08/21 Primary Care Physician: Florinda Primary Care Phys Reason For Visit: COVID Diagnosis Discharge Diagnosis (1) Acute respiratory failure with hypoxia: Status: Acute Code(s): J96.01 - Acute respiratory failure with hypoxia (2) Pneumonia due to COVID-19 virus: Status: Acute Code(s): U07.1 - COVID-19; J12.82 - Pneumonia due to coronavirus disease 2019 (3) Debility: Status: Acute Code(s): R53.81 - Other malaise Medications at Discharge Home Medications desvenlafaxine succinate 50 mg PO DAILY 09/08/21 hydroxyzine HCl 25 mg PO QHS 09/08/21 leflunomide 10 mg PO DAILY 09/08/21 levothyroxine 25 mcg PO DAILY 09/08/21 levothyroxine 200 mcg PO DAILY 09/08/21 prednisone See Taper PO DAILY 09/08/21 trazodone 100 mg PO DAILY 09/08/21 cefdinir 300 mg PO BID #10 cap 09/11/21 dexamethasone 6 mg PO DAILY #7 tab 09/11/21 guaifenesin [Mucus Relief ER] 1,200 mg PO BID #20 tab 09/11/21 Hospital Course Summary of Care Provided Minutes Spent on Discharge: 45 Hospital Course: Patient is a 66-year-old lady admitted with progressive shortness of breath diagnosed with COVID-19 pneumonia 1. Acute hypoxic respiratory failure -secondary to COVID-19 pneumonia admitted to regular nursing floor currently being managed with remdesivir and Decadron in addition to supplemental oxygen -09/11/2021; Patient seen able to maintain adequate oxygen saturation. Plan is for patient to be assessed for possible discharge home with a 6-minute walk -Patient did qualify for oxygen she would need portability since he is active both at home as well as in the community 2. Rheumatoid arthritis ?Patient is on leflunomide did continue 3. Hypothyroidism - Patient is on levothyroxine home dose continued 4. Class III obesity with BMI of 40.6 ?Weight loss advised 5. Depression with anxiety ?Patient is on SNRI in addition to trazodone did continue 7. DVT prophylaxis ?Lovenox Physical Exam Narrative GENERAL: cooperative HEENT: Atraumatic; EYES; Anicteric, Normal Conjunctiva NECK; supple, normal thyroid, RESPIRATORY: Diminished to auscultation CARDIOVASCULAR: Regular S1 S2, GI: soft, normoactive bowel sounds, : No Renal angle tenderness; EXTREMITIES: No edema, no clubbing, MUSCULOSKELETAL: no muscle waisting NEURO: Awake; no lateralizing signs. SKIN: No Rash PSYCH; Flat affect Weight / BMI Weight Weight: 108 kg Body Mass Index (BMI) 47.5 ABG / Lab / Microbiology Data Result Diagrams: 09/11/21 06:50 09/11/21 06:50 Laboratory: Laboratory Results - last 24 hr 09/11/21 06:50: WBC 5.2, RBC 4.49, Hgb 13.3, Hct 40.9, MCV 91.1, MCH 29.6, MCHC 32.5, RDW Std Deviation 47.3 H, RDW Coeff of Silvano 14.0, Plt Count 156, MPV 11.5, Neut % (Auto) Not Reportable 09/11/21 06:50: Sodium 142, Potassium 4.2, Chloride 113 H, Carbon Dioxide 25.0, Anion Gap 4 L, BUN 19 H, Creatinine 0.80, Estim Creat Clear Calc 51.49, Est GFR (MDRD) Af Amer 92, Est GFR (MDRD) Non-Af 76, BUN/Creatinine Ratio 23.7 H, Glucose 195 H, Calcium 8.6, Magnesium 2.2, Total Bilirubin 0.50, AST 24, ALT 42, Alkaline Phosphatase 40 L, Total Protein 6.1 L, Albumin 2.6 L, Globulin 3.5, Albumin/Globulin Ratio 0.7 L Microbiology: Microbiology 09/09/21 00:22 Urine, Clean Catch Legionella Antigen - Final 09/09/21 00:22 Urine, Clean Catch Streptococcus pneumoniae Antigen (M - Final 09/08/21 20:00 Mucosa - Nasopharyngeal Respiratory Panel (PCR) - Final 09/08/21 10:35 Nasal Secretion SARS-CoV-2 Antigen (Rapid) - Final SARS-CoV-2 (COVID 19) D/C Instructions Discharge Diet: No restrictions Discharge Activity: Return to Normal Activity Call your doctor if you observe: Fever of 101 or Higher, Shortness of breath, Fainting spells and Chest pain Meaningful Use Info Meaningful Use Diagnoses (Choose all that apply): None applicable Discharge Plan Admission Admit Date/Time: 09/08/21 12:11 Attending Provider: Sam Escamilla Primary Care Provider: Care Physician,No Primary Discharge Orders/Prescriptions Prescriptions: New dexamethasone 4 mg Tablet 6 mg PO DAILY Qty: 7 RF: 0 Mucus Relief ER 1,200 mg Tablet Extended Release 12hr 1,200 mg PO BID Qty: 20 RF: 0 cefdinir 300 mg capsule 300 mg PO BID Qty: 10 RF: 0 Continued prednisone 10 mg tablet See Taper mg PO DAILY RF: 0 leflunomide 10 mg tablet 10 mg PO DAILY RF: 0 levothyroxine 25 mcg tablet 25 mcg PO DAILY RF: 0 trazodone 100 mg tablet 100 mg PO DAILY RF: 0 hydroxyzine HCl 25 mg tablet 25 mg PO QHS RF: 0 levothyroxine 200 mcg tablet 200 mcg PO DAILY RF: 0 desvenlafaxine succinate 50 mg tablet extended release 24 hr 50 mg PO DAILY RF: 0 Referrals / Follow Up: Care Physician,No Primary [Primary Care Provider] - Disposition Disposition (needs filled in before D/C Order can be placed): Home, Self Care Charges/Coding Visit Charges Inpatient E&M: 52487 Disch Hosp
[2021-09-11] MEDS: Enoxaparin 40 MG/0.4 ML Syringe SC (08:44)
[2021-09-11] MEDS: Leflunomide 10 MG TABLET PO (08:44)
[2021-09-11] MEDS: Venlafaxine XR 37.5 MG Capsule PO (08:44)
[2021-09-11] MEDS: Levothyroxine 25 MCG TABLET PO (08:44)
[2021-09-11] MEDS: dexAMETHasone 4 MG Tablet 6 MG PO (08:44)
[2021-09-11] MEDS: guaiFENesin 1,200 MG Tablet 1200 MG PO (08:44)
[2021-09-11] MEDS: Levothyroxine 100 MCG Tablet 200 MCG PO (08:44)
[2021-09-11 08:47] LABS: Lymphocyte 11 % (19-41); Metamyelocyte 2 % (0-1); Monocyte 7 % (0-10); Myelocyte 1 % (0-0); Neutrophil-Segmented 78 % (47-70); Platelet Estimate ADEQUATE (ADEQ); Promyelocyte 1 % (0-0); Total Cells Counted 100 (MANUAL DIFF)
[2021-09-11 08:48] LABS: Absolute Neutrophil Count 4.1 X10^3/uL (2.0-7.7); Red Cell Morphology NORM C+C NORMAL (NORM C&C)
--- NOTE | 2021-09-11 09:46 | PCS.PANDOC ---
PANDEMIC DOCUMENTATION INITIATED: Date: 05/14/2021 Time: 1900 emergency team nursing assignment sheet
[2021-09-11] MEDS: 0.9% Saline Lock 10 ML Syringe IV (11:12)
--- NOTE | 2021-09-11 11:56 | CASEMGMT ---
Pt qualifies for home O2, referral faxed to [facility] [place] [facility]. TC to [facility] with multiple attempts and unable to reach. Will try again.
[2021-09-11 13:30] LABS: Pathologist Review Reviewed
== END 2021-09-11 16:16 | disposition home or self-care (01) | DRG 177 ==
LOC: ED 12:18 → MS3 14:33
PROVIDERS: Admitting Provider Internal Medicine; Emergency Provider Student in an Organized Health Care Education/Training Program; PCP Student in an Organized Health Care Education/Training Program; Visit Provider Internal Medicine
DX: U07.1 COVID-19 (principal); J12.82 Pneumonia due to coronavirus disease 2019; J96.01 Acute respiratory failure with hypoxia; Z68.42 Body mass index [BMI] 45.0-49.9, adult; E03.9 Hypothyroidism, unspecified; E66.01 Morbid (severe) obesity due to excess calories; M06.9 Rheumatoid arthritis, unspecified; F41.8 Other specified anxiety disorders; Z79.899 Other long term (current) drug therapy; Z79.890 Hormone replacement therapy; Z79.52 Long term (current) use of systemic steroids; Z28.3 Underimmunization status; Z87.891 Personal history of nicotine dependence
CPT/HCPCS: 36415; 71045; 71275; 80048; 80053; 83735; 84484; 85025; 85379; 87040; 87426; 87449; 87633; 93005; 94762; 97802; 99251; 99285; J7050; Q9967; A4216; G0463

== ENCOUNTER 2021-11-23 10:33 | Day surgery (SDC) | payer MEDICARE, MEDICAID, SELFPAY ==
[2021-11-23] VITALS (7 sets, daily range): BP systolic 87–152; BP diastolic 48–86; PULSE 76–102; RESP 16; TEMP 36.2–37.2; O2SAT 97–100; BMI 49.9
--- NOTE | 2021-11-23 | IMM_PTH ---
PATIENT: DEACON RENEE LOC: EN U#:[id number] AGE/SX: 66/F ROOM: RE11/23/[address]: Dr. Barrett Barrios MD : 1955 BED: DIS: 11/23/2021 SPEC #: [id number] RECD: 11/26/21 08:47 STATUS: CONCHA REQ #: [id number] MAGDI: 11/23/21 00:[address]: Barrett Barrios DEPT: IMMUNOHISTOCHEMISTRY RECD BY: Elizabet Joyce ENTERED: 11/26/21 08:48 SP TYPE: IMMUNO OTHR DR: Dr. Rajat Luis, DO Tissues: Stomach, NOS Procedures: H Pylori (initial) PHYSICIAN & INSTITUTION [place] [address] SPECIMEN INFORMATION: Tissue Source: Antrum biopsy Clinical Info: GERD Specimen Number: [id number] CPT code: 41128, 25804 METHODOLOGY: Deparaffinized sections of prefer/formalin-fixed tissue or PAP/DQ stained slides are incubated with monoclonal/polyclonal antibodies/oligonucleotide probes. Localization is made via biotin free immunoperoxidase method. Appropriate controls are performed and reacted as expected. Results on target cell population are indicated in the following table: RESULTS: ANTIBODY / CLONE RESULT H Pylori (polyclonal) negative These tests were developed and their performance characteristics determined by [facility]. They may not have been cleared or approved by the U.S. Food and Drug Administration. The FDA has determined that such clearance or approval is not necessary. INTERPRETATION: Antrum biopsy: Negative for Helicobacter pylori organisms. EMERALD:melanie 11/27/2021
--- NOTE | 2021-11-23 | GASB_PTH ---
PATIENT: DEACON RENEE LOC: EN U#:[id number] AGE/SX: 66/F ROOM: RE11/23/[address]: Dr. Barrett Barrios MD : 1955 BED: DIS: 11/23/2021 SPEC #: [id number] RECD: 11/23/21 14:10 STATUS: CONCHA REYumiko #: [id number] MAGDI: 11/23/21 00:[address]: Barrett Barrios DEPT: SURGICAL PATHOLOGY RECD BY: Nestor Balderas ENTERED: 11/26/21 08:42 SP TYPE: Gastric Bx OTHR DR: Dr. Rajat Luis, DO Tissues: Gastric mucous membrane Procedures: Surgery Specimen Level IV HEADER OPERATION: [place], EGD ([facility] [place] PRE-OP DIAGNOSIS: Screening, GERD TISSUE SUBMITTED: Antrum biopsy for H. pylori and path MICROSCOPIC DIAGNOSIS Antrum biopsy: Mild gastritis. See microscopic description and comment. SJ:melanie 11/27/2021 COMMENT The results of immunohistochemistry for Helicobacter pylori will be reported separately ([id number]). MICROSCOPIC DESCRIPTION Slides are reviewed. The specimen shows fragments of gastric mucosa with chronic inflammatory cell infiltrates in the lamina propria consisting of lymphocytes and plasma cells, consistent with mild chronic gastritis. GROSS DESCRIPTION Received in fixative is one container labeled with the patient's name and designated antrum biopsy. The specimen consists of one irregular fragment of hemorrhagic soft tissue that measures 0.3 x 0.3 x 0.1 cm. The specimen is totally submitted in one cassette. / EMERALD:melanie 11/26/2021 TC:3 CPT: 08800
--- NOTE | 2021-11-23 11:06 | HP.PCM_ITS ---
History and Physical Date of Admission: 11/23/21 HISTORY AND PHYSICAL ? Tiffanie Bailey 1955 ? REFERRING PHYSICIAN: Rajat Luis DO ? CHIEF COMPLAINT: Consult (colonscopy) ? HPI: The patient is a 66 year old female referred for endoscopy. Tiffanie notes a history of colon polyps and is referred for surveillance colonoscopy. Patient d enies any change in bowel habits, weight changes, blood in stools, black tarry stools or abdominal pain. Denies family history of colon issues. ? The patient NOTES upper GI complaints-dysphagia, choking sometimes even with talking, epigastric pain after eating regardless of food type x several months. ? Tiffanie has undergone prior endoscopy. She reports that last colonoscopy was in 2013. Report not currently available for review. ? Patient's past medical history is significant for COVID-19 infection in August 2021-was on oxygen but off of this now, and currently finishing a prednisone taper. History also significant for obesity, rheumatoid arthritis, anxiety, hyperlipidemia, hypothyroidism, heart murmur. Patient follows with Dr. Rajat Luis DO in primary care for her chronic medical issues. Her most recent office visit note is reviewed. ? ? PAST MEDICAL HISTORY PAST MEDICAL HISTORY Diagnosis Date ? Acid reflux ? ? Chronic cough ? ? COPD (chronic obstructive pulmonary disease) (HCC) ? ? Depression ? ? Disorder of thyroid ? ? Edema, lower extremity ? ? Foot pain ? ? Generalized anxiety disorder ? ? Hyperlipemia ? ? Insomnia ? ? Knee pain ? ? Murmur ? ? Obesity ? ? Rheumatoid arthritis (HCC) ? ? Vitamin D deficiency ? ? ? PAST SURGICAL HISTORY PAST SURGICAL HISTORY Procedure Laterality Date ? ANKLE SURGERY HX Left 2000 ? APPENDECTOMY ? 1974 ? COLONSCOPY SCREENING HIGH RISK ? 2013 ? PAST SURGICAL HISTORY OF Right 2001 ? shoulder surgery ? VAGINAL HYSTERECTOMY ? 2005 ? ? ? CURRENT MEDICATIONS Current Outpatient Medications Medication Sig ? albuterol HFA (PROVENTIL HFA, VENTOLIN HFA) 90 mcg/actuation inhaler 2 (TWO) puff(s) Inhalation EVERY 4 HOURS NEEDED Shortness of breath or wheezing,Instruse with spacer chamber ? desvenlafaxine ER (PRISTIQ) 50 mg 24 hr tablet Take 50 mg by mouth once daily. ? dexAMETHasone (DECADRON) 4 mg tablet TAKE 1 & 1/2 (ONE AND ONE-HALF) TABLETS BY MOUTH DAILY ? esomeprazole (NEXIUM) 40 mg capsule Take 40 mg by mouth. ? ezetimibe (ZETIA) 10 mg tablet Take 10 mg by mouth. ? fluticasone (FLONASE) 50 mcg/actuation nasal spray Use in the nose. ? MUCUS-ER MAX 1,200 mg Ta12 TAKE 1 TABLET Oral EVERY 12 HOURS NEEDED Cough and congestion,Instrnot to exceed 2.4 grams/day, with plenty of water. Do not take any other guaifenesin or mucinex containing over the counter medications while on this medication.] ? hydrOXYzine HCl (ATARAX) 25 mg tablet Take 25 mg by mouth daily at bedtime. ? leflunomide (ARAVA) 10 mg tablet Take 10 mg by mouth once daily. ? levothyroxine (SYNTHROID) 200 mcg tablet Take 200 mcg by mouth once daily. ? ? levothyroxine (SYNTHROID) 25 mcg tablet Take 25 mcg by mouth once daily. ? ? loratadine (CLARITIN) 10 mg tablet Take 10 mg by mouth. ? omeprazole (PRILOSEC) 40 mg capsule Take 40 mg by mouth. ? SPIRIVA RESPIMAT 2.5 mcg/actuation inhaler 2 (TWO) puff(s) Inhalation EVERY Day ? traZODone (DESYREL) 100 mg tablet Take 400 mg by mouth daily at bedtime. ? ? cholecalciferol, vitamin D3, (VITAMIN D3 ORAL) Take 25 mcg by mouth twice daily. ? CALCIUM ORAL Take 500 mg by mouth once daily. ? No current facility-administered medications for this visit. ? ? ALLERGIES: Morphine ? PERSONAL HISTORY: SOCIAL HISTORY Social History ? Tobacco Use ? Smoking status: Former Smoker ? ? Types: Cigarettes ? ? Quit date: 1998 ? ? Years since quittin.0 ? Smokeless tobacco: Never Used Vaping Use ? Vaping Use: Never used Substance Use Topics ? Alcohol use: Never ? Drug use: Never ? FAMILY HISTORY: FAMILY HISTORY FAMILY HISTORY Problem Relation Age of Onset ? Diabetes Mother ? ? Pancreatic Cancer Father ? ? Diabetes Brother ? ? Kidney stones Brother ? ? ? REVIEW OF SYMPTOMS: The review of systems data was entered by the nurse and reviewed by me ? Nursing Notes: Shelia Solo LPN 10/23/2021 9:43 AM Signed REVIEW OF SYSTEMS: General: The patient denies fatigue, denies weight loss, notes weight gain, denies feeling hot, and denies feelings of cold. Eyes: The patient denies glaucoma, denies eye injury/surgery, wears glasses or contacts. Ear/Nose/Throat: The patient notes allergies, denies hayfever, denies ear infections, and denies bloody noses. Cardiovascular: The patient denies chest pain, denies heart disease, denies high blood pressure,denies cardiac stent, denies prior heart attack, notes irregular heart beat, denies high cholesterol, denies poor circulation, denies heart failure, other cardiac issues, denies claudication, notes cold feet, denies peripheral arterial stent. Respiratory: The patient denies tuberculosis, denies pneumonia, denies frequent cough, denies pulmonary embolism, notes shortness of breath, and denies coughing up blood. Gastrointestinal: The patient denies difficulty swallowing, notes acid reflux, denies ulcers, denies vomiting, denies jaundice/hepatitis, denies gallbladder problems, denies black or tarry stools, denies hemorrhoids, denies bleeding from rectum, denies diverticulitis, denies constipation, denies diarrhea, denies loss of stool control, and denies hernias. Kidney/Bladder: The patient denies kidney stones, denies urine infections, and denies bloody urine. Skin: The patient denies a history of skin cancer, denies bleeding/changing moles, and denies a history of skin rash. Neurologic: The patient denies a history of epilepsy/convulsions, denies headaches, denies head/spinal injuries, and denies stroke/TIA. Psychiatric: The patient denies psychiatric medications, notes depression, and denies voices, denies substance abuse. Endocrine: The patient notes thyroid disorders, denies diabetes, and denies hormonal problems. Hematologic: The patient denies a history of bruising, denies bleeding, and denies anemia, denies blood clots. Infections: The patient denies a history of measles and mumps, denies rheumatic fever, and denies sexually transmitted diseases. Musculoskeletal: The patient denies back pain/injury, denies back problems, denies sciatica, denies knee/foot trouble, notes arthritis, or denies gout. ? ? When was patient's last Mammogram screening? 2021 [facility] ? Last Colonoscopy: 2013 ? Shelia Solo LPN I have confirmed and edited as necessary, the PFSH and ROS obtained by others. Angeli Major PA-C ? PHYSICAL EXAMINATION: ? General: The patient is 66 year old female, well nourished, well hydrated in no acute distress. The patient is oriented to time, place, and person. ? VITALS: Temperature 37.5 ?C (99.5 ?F), height 155 cm (5' 1.02), weight 120.4 kg (265 lb 6.4 oz), SpO2 90 %. Body mass index is 50.11 kg/m?. ? HEENT: Normal cephalic, ataumatic, pupils are equally round, sclera are anicteric, mucous membranes are moist, oropharynx is clear. Neck has no masses, asymmetry or lymphadenopathy. ? Respiratory: Clear to auscultation and percussion. Normal respiratory excursion and pattern. ? Cardiac: Examination is regular rate and rhythm. Normal S1/S2 ? Abdominal exam: Soft, nontender, with no palpable masses. No hepatosplenomegaly. No palpable hernias. ? Extremities: no clubbing, cyanosis or edema. No adenopathy. ? LABORATORY VALUES: As Noted ? RADIOLOGIC STUDIES: As Noted ? ? Assessment IMPRESSION: encounter for colonoscopy. GERD-recommend EGD in addition to colonoscopy ? PLAN: I have reviewed my findings with the surgeon. Will plan for upper and lower endoscopy. We discussed the risks and benefits of the planned endoscopy. I have informed the patient that complications can occur including failure to complete the endoscopy and perforation. The patient had the opportunity to ask questions concerning the planned endoscopy. My staff has also explained the procedure to the patient in understandable terms and has given the patient printed material concerning the procedure. The patient freely consents to surgery. ? The patient was offered a surgery/procedure at a [facility] facility. I have counseled the patient regarding the risk of exposure to and/or potential harm posed by the COVID-19 virus with having a surgery/procedure at this time versus the risk of? delaying the surgery/procedure. It is not possible to know either the risk of delaying the surgery or procedure or chance of getting an infection with perfect accuracy, but a joint decision was made between the patient and myself?to proceed at this time with endoscopy. ? ? I plan to use Golytely bowel preparation ? The patient has medical comorbidities for which we will plan for the procedure to be performed under Monitored Anesthetic Care. ? ? ? Diagnoses: (Z12.11) Encounter for screening for malignant neoplasm of colon (primary encounter diagnosis) (K21.9) Gastroesophageal reflux disease, unspecified whether esophagitis present (Z86.010) History of colonic polyps ? Consultation requested by Dr. Luis for an opinion regarding colon cancer screening and GERD. My final recommendations will be communicated back to the requesting physician by way of shared Medical record or letter to requesting physician via US mail. ? Angeli Major PA-C I have re-examined the patient. There are no clinical changes since date of exam.
[2021-11-23] MEDS: Lactated Ringers 1,000 ML 15 ML IV (11:22)
--- NOTE | 2021-11-23 12:41 | OP.EGD_ITS ---
Patient Name: Tiffanie Bailey Procedure Date: 11/23/2021 11:54 AM Date of : 1955 Age: 66 Procedure: Upper GI endoscopy Indications: Gastro-esophageal reflux disease Providers: Barrett Barrios MD Medicines: See the Anesthesia note for documentation of the administered medications Patient Profile: This is a 66 year old female. Refer to note in patient chart for documentation of history and physical. Complications: No immediate complications. Estimated blood loss: Minimal. Procedure: Pre-Anesthesia Assessment: - Prior to the procedure, a History and Physical was performed, and patient medications and allergies were reviewed. The patient's tolerance of previous anesthesia was also reviewed. The risks and benefits of the procedure and the sedation options and risks were discussed with the patient. All questions were answered, and informed consent was obtained. Prior Anticoagulants: The patient has taken no previous anticoagulant or antiplatelet agents. ASA Grade Assessment: III - A patient with severe systemic disease. After reviewing the risks and benefits, the patient was deemed in satisfactory condition to undergo the procedure. After obtaining informed consent, the endoscope was passed under direct vision. Throughout the procedure, the patient's blood pressure, pulse, and oxygen saturations were monitored continuously. The gastroscope was introduced through the mouth, and advanced to the second part of duodenum. The upper GI endoscopy was accomplished without difficulty. The patient tolerated the procedure well. Scope In: 12:02:04 PM Scope Out: 12:10:26 PM Total Procedure Duration Time 0 hours 8 minutes 22 seconds Findings: The Z-line was regular and was found 38 cm from the incisors. No biopsies or other specimens were collected for this exam. The entire examined stomach was normal. Biopsies were taken with a cold forceps for Helicobacter pylori testing. The examined duodenum was normal. No biopsies or other specimens were collected for this exam. Impression: - Z-line regular, 38 cm from the incisors. No specimens collected. - Normal stomach. Biopsied. - Normal examined duodenum. No specimens collected. Recommendation: - Discharge patient to home. - Resume previous diet. - Continue present medications. - Await pathology results. - Repeat upper endoscopy PRN for surveillance. - Return to nurse practitioner in 1 week. Procedure Code(s): --- Professional --- 55170, Esophagogastroduodenoscopy, flexible, transoral; with biopsy, single or multiple Diagnosis Code(s): --- Professional --- K21.9, Gastro-esophageal reflux disease without esophagitis CPT copyright 2017 [employer]. All rights reserved. The codes documented in this report are preliminary and upon research engineer review may be revised to meet current compliance requirements. MD Barrett Muse MD 11/23/2021 12:40:46 PM This report has been signed electronically. Number of Addenda: 0 Note Initiated On: 11/23/2021 11:54 AM
--- NOTE | 2021-11-23 12:41 | OP.CCLET_ITS ---
11/23/2021 Rajat Luis Do Re : Upper GI endoscopy procedure for Tiffanie Bailey Dear Janelle This procedure was performed on Tuesday, November 23, 2021. My impressions and recommendations are as follows: Impressions : - Z-line regular, 38 cm from the incisors. No specimens collected. - Normal stomach. Biopsied. - Normal examined duodenum. No specimens collected. Recommendations : - Discharge patient to home. - Resume previous diet. - Continue present medications. - Await pathology results. - Repeat upper endoscopy PRN for surveillance. - Return to nurse practitioner in 1 week. My findings are described in the full procedure note, which is enclosed. If I can be of further assistance, please feel free to contact me at Doctor phone number(s): , Work: . Sincerely, MD Barrett Muse MD 11/23/2021 12:40:46 PM This report has been signed electronically.
--- NOTE | 2021-11-23 12:43 | OP.CCLET_ITS ---
11/23/2021 Rajat Luis Do Re : Colonoscopy procedure for Tiffanie Bailey Dear Janelle This procedure was performed on Tuesday, November 23, 2021. My impressions and recommendations are as follows: Impressions : - Diverticulosis in the sigmoid colon. - The examination was otherwise normal on direct and retroflexion views. - No specimens collected. Recommendations : - Discharge patient to home. - Resume previous diet. - Continue present medications. - Await pathology results. - Repeat colonoscopy in 10 years for screening purposes. - Return to physician psychology assistant in 1 week. My findings are described in the full procedure note, which is enclosed. If I can be of further assistance, please feel free to contact me at Doctor phone number(s): , Work: . Sincerely, MD Barrett Muse MD 11/23/2021 12:42:53 PM This report has been signed electronically.
--- NOTE | 2021-11-23 12:43 | OP.COLON_ITS ---
Patient Name: Tiffanie Bailey Procedure Date: 11/23/2021 12:10 PM Date of : 1955 Age: 66 Procedure: Colonoscopy Indications: Screening for colorectal malignant neoplasm Providers: Barrett Barrios MD Medicines: See the Anesthesia note for documentation of the administered medications Patient Profile: This is a 66 year old female. Refer to note in patient chart for documentation of history and physical. Last Colonoscopy: 2013. Complications: No immediate complications. Procedure: Pre-Anesthesia Assessment: - Prior to the procedure, a History and Physical was performed, and patient medications and allergies were reviewed. The patient's tolerance of previous anesthesia was also reviewed. The risks and benefits of the procedure and the sedation options and risks were discussed with the patient. All questions were answered, and informed consent was obtained. Prior Anticoagulants: The patient has taken no previous anticoagulant or antiplatelet agents. ASA Grade Assessment: III - A patient with severe systemic disease. After reviewing the risks and benefits, the patient was deemed in satisfactory condition to undergo the procedure. After I obtained informed consent, the scope was passed under direct vision. Throughout the procedure, the patient's blood pressure, pulse, and oxygen saturations were monitored continuously. The adult colonoscope was introduced through the anus and advanced to the cecum, identified by appendiceal orifice and ileocecal valve. The colonoscopy was performed without difficulty. The patient tolerated the procedure well. The quality of the bowel preparation was good. Scope In: 12:13:10 PM Scope Withdrawal Time 0 hours 8 minutes 32 seconds Scope Out: 12:27:38 PM Total Procedure Duration Time 0 hours 14 minutes 28 seconds Findings: A few small-mouthed diverticula were found in the sigmoid colon. The exam was otherwise without abnormality on direct and retroflexion views. Impression: - Diverticulosis in the sigmoid colon. - The examination was otherwise normal on direct and retroflexion views. - No specimens collected. Recommendation: - Discharge patient to home. - Resume previous diet. - Continue present medications. - Await pathology results. - Repeat colonoscopy in 10 years for screening purposes. - Return to physician embalmer assistant in 1 week. Procedure Code(s): --- Professional --- 72152, Colonoscopy, flexible; diagnostic, including collection of specimen(s) by brushing or washing, when performed (separate procedure) Diagnosis Code(s): --- Professional --- Z12.11, Encounter for screening for malignant neoplasm of colon K57.30, Diverticulosis of large intestine without perforation or abscess without bleeding CPT copyright 2017 [employer]. All rights reserved. The codes documented in this report are preliminary and upon loan expeditor review may be revised to meet current compliance requirements. MD Barrett Muse MD 11/23/2021 12:42:53 PM This report has been signed electronically. Number of Addenda: 0 Note Initiated On: 11/23/2021 12:10 PM
== END 2021-11-23 23:59 | disposition home or self-care (01) ==
LOC: EN 10:37 → AC 10:39
PROVIDERS: PCP Student in an Organized Health Care Education/Training Program; Referring Provider Student in an Organized Health Care Education/Training Program; Visit Provider Surgery
PROC: 0DJD8ZZ Inspection of Lower Intestinal Tract, Via Natural or Artificial Opening Endoscopic (ICD-10-PCS; CPT 45378; principal; 2021-11-23 11:40)
DX: Z12.11 Encounter for screening for malignant neoplasm of colon (principal); M06.9 Rheumatoid arthritis, unspecified; J44.9 Chronic obstructive pulmonary disease, unspecified; Z68.43 Body mass index [BMI] 50.0-59.9, adult; K29.70 Gastritis, unspecified, without bleeding; K21.9 Gastro-esophageal reflux disease without esophagitis; E66.9 Obesity, unspecified; K57.30 Diverticulosis of large intestine without perforation or abscess without bleeding; F41.1 Generalized anxiety disorder; E78.5 Hyperlipidemia, unspecified; E07.9 Disorder of thyroid, unspecified; Z79.899 Other long term (current) drug therapy; Z86.010 Personal history of colon polyps; Z86.16 Personal history of COVID-19; Z87.891 Personal history of nicotine dependence
CPT/HCPCS: 43239; 45378; 88305; 88342; J7120; J2405

== ENCOUNTER 2024-10-08 12:07 | Day surgery (SDC) | payer MEDICARE, MEDICAID, SELFPAY ==
[2024-10-08] VITALS (8 sets, daily range): BP systolic 102–131; BP diastolic 70–91; PULSE 65–84; RESP 16–20; TEMP 36.4–36.8; O2SAT 94–99; BMI 50.8
--- NOTE | 2024-10-08 13:08 | PCM.PRE.AN2 ---
ASA Classification* ASA Classification ASA Classification: 3 Assessment & Plan Anesthesia* Anesthesia Assessment Anesthesia Assessment: Discussed sedation and/or anesthesia options, risks, benefits, and alternatives with patient/parents/legal guardian/POA. Questions invited. The patient/parents/legal guardian/POA seems to understand and agrees to proceed with anesthesia plan. Reviewed the physical assessment, medical history, allergy history and patient home medications list prior to surgery/procedure/anesthetic and documented any changes. Performed airway and anesthesia risk assessments. Anesthesia Type Anesthesia Type: MAC History Source History Obtained from:: Patient and Chart Anesthesia Focused Assessment* Temperature: 97.8 F Pulse Rate: 65 Blood Pressure: 131/70 Respiratory Rate: 20 Pulse Ox: 99 Oxygen Delivery Method: Room Air Airway Assessment Mouth opens: >3 cm Mallampati Score: II Teeth Condition: Missing (Patient is edentulous.) Neck Range of motion (ROM): Limited ROM Focused Labs Anesthesia Preop lab: CBC WBC 5.0 K/mm3 (4.4-11.0) 09/11/22 09:15 RBC 4.94 M/mm3 (4.2-5.4) 09/11/22 09:15 Hgb 14.6 g/dL (12.0-15.0) 09/11/22 09:15 Hct 46.7 % (37-47) 09/11/22 09:15 Plt Count 188 K/mm3 (150-450) 09/11/22 09:15 CHEMISTRY Potassium 4.2 mmol/L (3.5-5.1) 09/11/22 09:15 Sodium 140 mmol/L (136-145) 09/11/22 09:15 Magnesium 2.2 mg/dL (1.6-2.6) 09/11/21 06:50 BUN 16 mg/dL (7-18) 09/11/22 09:15 Creatinine 1.11 mg/dL (0.55-1.02) H 09/11/22 09:15 Glucose 99 mg/dL (74-106) 09/11/22 09:15 COAG Pre-Assessment Diagnosis/Proposed Procedure Planned Operative Procedure(s): EGD Anesthesia History 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 When Was Last Pacemaker Check QUESTION #4 FULL TEXT: You/Your Family Experience fever (hyperthermia) with Anesthesia Last Oral Intake Last Oral intake: Last Oral Intake NPO since :10/08/24 12:29 Meds taken in AM with sips of water? 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 Female Yes 10/06/24 14:00 HX of Motion Sickness No 10/06/24 14:00 HX of N/V After Surgery No 10/06/24 14:00 Non-Smoker Yes 10/06/24 14:00 Duration of Surgery greater No 10/06/24 14:00 than 60 minutes Number of Risk Factors 2 10/06/24 14:00 PONV Score Moderate Risk 10/06/24 14:00 Height & Weight Height & Weight: Anesthesia: Height & Weight Height 5 ft 1 in 10/08/24 12:29 Weight: 122 kg 10/08/24 12:29 Body Mass Index (BMI) 50.8 10/08/24 12:29 Respiratory Assessment Respiratory Assessment - 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 Has anyone observed you stop No 10/06/24 14:00 breathing during sleep? STOP Results Negative 10/06/24 14:00 QUESTION #5 FULL TEXT : Do you snore loudly (louder than talking or can be heard through closed doors)? 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 Specify any problems Hx of Preganancy in last 3 No 10/06/24 14:00 Months Nurse Filling Out Transfusion VCHRISTIN 10/06/24 14:00 & Questions: Date: 10/06/24 10/06/24 14:00 Time: 14:02 10/06/24 14:00 Patient unable to answer at this time (ie. 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 Wears glasses Wears dentures Cancer Depression Anxiety Bladder disease High cholesterol Easy bruising Injury of back Gastric reflux COPD (chronic obstructive pulmonary disease) Former smoker Shortness of breath on exertion History of edema History of irregular heartbeat Hx of fracture of foot Hypothyroidism Rheumatoid arthritis Home Medications ?Medication ?Instructions ?Recorded ?Last Taken ?Type desvenlafaxine succinate 50 mg 50 mg PO DAILY 09/08/21 10/05/24 History tablet,extended release 24 hr hydroxyzine HCl 25 mg tablet 25 mg PO QHS PRN anxiety 09/08/21 10/05/24 History apixaban 5 mg tablet 5 mg PO BID 08/03/24 10/05/24 History buspirone 5 mg tablet 5 mg PO BID 08/03/24 10/05/24 History cholecalciferol (vitamin D3) 50 50 mcg PO QDAY 08/03/24 10/05/24 History mcg (2,000 unit) capsule omeprazole 40 mg capsule,delayed 40 mg PO QDAY 08/03/24 10/05/24 History release rosuvastatin 20 mg tablet 20 mg PO QDAY 08/03/24 10/05/24 History thiamine HCl (vitamin B1) 250 mg 500 mg PO QDAY 08/03/24 10/05/24 History tablet sucralfate 1 gram tablet 1 g PO BID 1 month #60 tabs 08/12/24 10/05/24 Rx acetaminophen 650 mg 1,300 mg PO Q12H PRN pain 10/06/24 10/05/24 History tablet,extended release (8 Hour Pain Reliever) desvenlafaxine succinate 25 mg 25 mg PO DAILY 10/06/24 10/05/24 History tablet,extended release 24 hr levothyroxine 175 mcg tablet 175 mcg PO DAILY 10/06/24 10/05/24 History multivitamin (Daily Multi-Vitamin 1 tab PO DAILY 10/06/24 10/05/24 History tablet) vibegron 75 mg tablet (Gemtesa) 75 mg PO DAILY 10/06/24 10/05/24 History Allergy/AdvReac Type Severity Reaction Status Date / Time morphine Allergy Angioedema Verified 10/08/24 12:26 Family History Father Pancreatic cancer Mother Diabetes Other Anxiety Arthritis Cervical cancer Depression High cholesterol Mental disorder Surgical History Hx of colonoscopy History of esophagogastroduodenoscopy (EGD) Hx of colonoscopy Hx of removal of ovary Hx of total hysterectomy Hx of arthroscopy of shoulder Social History Smoking Status: Former smoker alcohol intake: never substance use type: does not use what type of physical activity do you participate in: walking frequency: 3-4 times per week Review of Systems (Anesthesia) ROS Narrative System reviewed and no additional complaints, except as documented.
--- NOTE | 2024-10-08 13:15 | EGD_PTH ---
PATIENT: DEACON RENEE LOC: EN U#:[id number] AGE/SX: 69/F ROOM: RE10/08/[address]: Dr. Jagdeep Bartlett DO : 1955 BED: DIS: 10/08/2024 SPEC #: [id number] RECD: 10/08/24 17:02 STATUS: CONCHA REYumiko #: [id number] MAGDI: 10/08/24 13:[address]: Jagdeep Bartlett DEPT: SURGICAL PATHOLOGY RECD BY: Yari Noel ENTERED: 10/11/24 07:39 SP TYPE: EGD BIOPSY OT DR: Dr. Rajat Luis DO Tissues: Esophagus, NOS Procedures: Special Stain Group I Surgery Specimen Level IV Alcian Blue/PAS (control) HEADER OPERATION: EGD, biopsy PRE-OP DIAGNOSIS: GERD TISSUE SUBMITTED: Distal esophagus biopsy MICROSCOPIC DIAGNOSIS Distal esophagus, biopsy: Squamous and glandular mucosa showing focal chronic inflammation. Squamous mucosa showing changes suggestive of acute reflux esophagitis, mild. Negative for intestinal metaplasia / Alcocer's esophagus. Negative for dysplasia. Negative for eosinophilic esophagitis. See comment. 10/12/2024 COMMENT Alcian blue/PAS stain is done and interpreted with appropriate control material showing no goblet cells and therefore no evidence of intestinal metaplasia / Alcocer's esopahgus. MICROSCOPIC DESCRIPTION Slides are reviewed. GROSS DESCRIPTION Received in fixative is one container labeled with the patient's name and designated Distal esophagus biopsy. The specimen consists of multiple irregular fragments of light betts soft tissue that in aggregate measure 1.2 x 0.5 x 0.2 cm. The specimen is totally submitted in one cassette. 10/11/2024 TC:3 CPT:86610,14475
--- NOTE | 2024-10-08 13:30 | PCM.HP.STD ---
HPI - General General Date of Admission: 10/08/24 Date of Service: 10/08/24 Chief Complaint: GERD HPI Narrative DEACON RENEE, is a 69 F who presents with 4 months now postprandial abdominal cramping and indigestion. Sx start 30mins after eating. It doesnt matter what she eats. She gets lower abdominal cramping and then nausea. Some reflux but does not vomit. States sx will last for an hr. BM are irregular. Will go once a day and then wont go for a couple days. Sometimes has hard BMs. Is taking Omeprazole but doesnt feel its working anymore. 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 Wears glasses Wears dentures Cancer Depression Anxiety Bladder disease High cholesterol Easy bruising Injury of back Gastric reflux COPD (chronic obstructive pulmonary disease) Former smoker Shortness of breath on exertion History of edema History of irregular heartbeat Hx of fracture of foot Hypothyroidism Rheumatoid arthritis Home Medications ?Medication ?Instructions ?Recorded ?Last Taken ?Type desvenlafaxine succinate 50 mg 50 mg PO DAILY 09/08/21 10/05/24 History tablet,extended release 24 hr hydroxyzine HCl 25 mg tablet 25 mg PO QHS PRN anxiety 09/08/21 10/05/24 History apixaban 5 mg tablet 5 mg PO BID 08/03/24 10/05/24 History buspirone 5 mg tablet 5 mg PO BID 08/03/24 10/05/24 History cholecalciferol (vitamin D3) 50 50 mcg PO QDAY 08/03/24 10/05/24 History mcg (2,000 unit) capsule omeprazole 40 mg capsule,delayed 40 mg PO QDAY 08/03/24 10/05/24 History release rosuvastatin 20 mg tablet 20 mg PO QDAY 08/03/24 10/05/24 History thiamine HCl (vitamin B1) 250 mg 500 mg PO QDAY 08/03/24 10/05/24 History tablet sucralfate 1 gram tablet 1 g PO BID 1 month #60 tabs 08/12/24 10/05/24 Rx acetaminophen 650 mg 1,300 mg PO Q12H PRN pain 10/06/24 10/05/24 History tablet,extended release (8 Hour Pain Reliever) desvenlafaxine succinate 25 mg 25 mg PO DAILY 10/06/24 10/05/24 History tablet,extended release 24 hr levothyroxine 175 mcg tablet 175 mcg PO DAILY 10/06/24 10/05/24 History multivitamin (Daily Multi-Vitamin 1 tab PO DAILY 10/06/24 10/05/24 History tablet) vibegron 75 mg tablet (Gemtesa) 75 mg PO DAILY 10/06/24 10/05/24 History Allergy/AdvReac Type Severity Reaction Status Date / Time morphine Allergy Angioedema Verified 10/08/24 12:26 Family History Father Pancreatic cancer Mother Diabetes Other Anxiety Arthritis Cervical cancer Depression High cholesterol Mental disorder Surgical History Hx of colonoscopy History of esophagogastroduodenoscopy (EGD) Hx of colonoscopy Hx of removal of ovary Hx of total hysterectomy Hx of arthroscopy of shoulder Social History Smoking Status: Former smoker alcohol intake: never substance use type: does not use what type of physical activity do you participate in: walking frequency: 3-4 times per week ROS Constitutional Constitutional: Denies fatigue, fever(s), poor appetite, weight gain or weight loss Gastrointestinal Gastrointestinal: Denies belching, bloating, change in bowel habits, change in stool character, chewing difficulty, coffee ground emesis, constipation, cramping, diarrhea, dyspepsia, dysphagia, early satiety, excessive flatus, fecal incontinence, heartburn, hematemesis, hematochezia, hemorrhoids, loose stools, melena, nausea, odynophagia, rectal bleeding, tenesmus, vomiting or weight changes Vital Signs Vital Signs Vital Signs: 10/08/24 12:29 10/08/24 12:29 10/08/24 13:16 Temperature 97.8 F 97.8 F Temperature Source Temporal Pulse Rate 65 65 Respiratory Rate 20 H 20 H Respiratory Pattern Normal Blood Pressure 131/70 H 131/70 H Blood Pressure Mean 90 Blood Pressure Source Monitor Blood Pressure Position Semi-Fowlers Blood Pressure Location Right Arm Pulse Ox 99 99 Oxygen Delivery Method Room Air Room Air Weight Weight: 268 lb 15.423 oz Body Mass Index (BMI) 50.8 Physical Exam Const alert, oriented x3, no apparent distress and healthy appearing General Appearance: cooperative GI normal to inspection, nondistended, normoactive bowel sounds, soft to palpation, non-tender and non-distended Percussion: normal to percussion Rectal Exam: deferred Assessment & Plan Assessment/Plan (1) GERD (gastroesophageal reflux disease): PLAN: THis is a 69 yo female pt here today for evaluation of epigastric pain. THis has been ongoing for four months now and associated with nausea. She has been on PPI therapy for years which has not helped with her acute symptoms. She tells me she has a family history of gastric cancer. SHe will undergo EGD to assess her upper GI tract for inflammation. SHe will continue the PPI and start sucralfate 1 gram BID. SHe is agreeable to plan.
--- NOTE | 2024-10-08 13:56 | OP.CCLET_ITS ---
10/08/2024 Rajat Luis Do Re : Upper GI endoscopy procedure for Tiffanie Bailey Dear Janelle This procedure was performed on Tuesday, October 08, 2024. My impressions and recommendations are as follows: Impressions : - Medium-sized hiatal hernia. - Normal stomach. - No gross lesions in the first portion of the duodenum. - No specimens collected. Recommendations : - Discharge patient to home (ambulatory). - Resume previous diet. - Continue present medications. - Await pathology results. My findings are described in the full procedure note, which is enclosed. If I can be of further assistance, please feel free to contact me at . Sincerely, Jagdeep Bartlett, 10/08/2024 1:55:45 PM This report has been signed electronically.
--- NOTE | 2024-10-08 13:56 | OP.EGD_ITS ---
Patient Name: Tiffanie Bailey Procedure Date: 10/08/2024 1:27 PM Date of : 1955 Age: 69 Procedure: Upper GI endoscopy Indications: Esophageal reflux Providers: Jagdeep Bartlett DO Referring MD: Rajat Luis Do Medicines: Monitored Anesthesia Care Patient Profile: This is a 69 year old female. Refer to note in patient chart for documentation of history and physical. Patient has symptoms of chronic heartburn. Patient has symptoms of chronic heartburn and chronic nausea. Complications: No immediate complications. Procedure: Pre-Anesthesia Assessment: - Prior to the procedure, a History and Physical was performed, and patient medications and allergies were reviewed. The patient is competent. The risks and benefits of the procedure and the sedation options and risks were discussed with the patient. All questions were answered and informed consent was obtained. Patient identification and proposed procedure were verified by the physician in the pre-procedure area. Mental Status Examination: alert and oriented. Airway Examination: normal oropharyngeal airway and neck mobility. Respiratory Examination: clear to auscultation. CV Examination: normal. Prophylactic Antibiotics: The patient does not require prophylactic antibiotics. Prior Anticoagulants: The patient has taken no anticoagulant or antiplatelet agents except for NSAID medication. ASA Grade Assessment: II - A patient with mild systemic disease. After reviewing the risks and benefits, the patient was deemed in satisfactory condition to undergo the procedure. The anesthesia plan was to use monitored anesthesia care (MAC). Immediately prior to administration of medications, the patient was re-assessed for adequacy to receive sedatives. The heart rate, respiratory rate, oxygen saturations, blood pressure, adequacy of pulmonary ventilation, and response to care were monitored throughout the procedure. The physical status of the patient was re-assessed after the procedure. After obtaining informed consent, the endoscope was passed under direct vision. Throughout the procedure, the patient's blood pressure, pulse, and oxygen saturations were monitored continuously. The Endoscope was introduced through the mouth, and advanced to the second part of duodenum. The upper GI endoscopy was accomplished without difficulty. The patient tolerated the procedure well. Scope In: 1:45:26 PM Scope Out: 1:49:01 PM Total Procedure Duration Time 0 hours 3 minutes 35 seconds Findings: A medium-sized hiatal hernia was present. The entire examined stomach was normal. No gross lesions were noted in the first portion of the duodenum. Impression: - Medium-sized hiatal hernia. - Normal stomach. - No gross lesions in the first portion of the duodenum. - No specimens collected. Recommendation: - Discharge patient to home (ambulatory). - Resume previous diet. - Continue present medications. - Await pathology results. Procedure Code(s): --- Professional --- 93388, Esophagogastroduodenoscopy, flexible, transoral; diagnostic, including collection of specimen(s) by brushing or washing, when performed (separate procedure) CPT copyright 2021 [employer]. All rights reserved. The codes documented in this report are preliminary and upon [employer] compliance coordinator review may be revised to meet current compliance requirements. Jagdeep Bartlett DO 10/08/2024 1:55:45 PM This report has been signed electronically. Number of Addenda: 0 Note Initiated On: 10/08/2024 1:27 PM
--- NOTE | 2024-10-08 14:00 | PCM.POST.ANE ---
Anesthesia: Postop Eval I Current Vital Signs Temperature: 97.6 F Pulse Rate: 84 Blood Pressure: 102/90 Respiratory Rate: 16 Pulse Ox: 97 Oxygen Delivery Method: Room Air Assessment Airway patent: Yes Spontaneous unlabored respirations: Yes Mental status: Awake and Calm nausea: No Vomiting: No Anesthesia Complication: No Fluid Hydration Crystalloid volume administer (ml): 30 Total IV fluid infused: 30 Progress Note Anesthesia document: Postop Eval 1 completed: Yes
--- NOTE | 2024-10-08 16:06 | PCM.POSTANE2 ---
Anesthesia Postop Eval I Sum Postop Eval Completion status Anesthesia document: Postop Eval 1 completed: Yes Anesthesia Postop Eval I Summary Anesthesia Postop Eval I Summary: Anesthesia Postop Eval I: Assessment Summary Airway patent Yes 10/08/24 14:01 [email or web address] Spontaneous unlabored Yes 10/08/24 14:01 [email or web address] respirations Mental status Awake,Calm 10/08/24 14:01 [email or web address] nausea No 10/08/24 14:01 [email or web address] Vomiting No 10/08/24 14:01 [email or web address] Anesthesia Postop Eval I: Fluid Summary Crystalloid volume administer 30 10/08/24 14:01 [email or web address] (ml) Colloids volume administered ( ml) Blood Product volume administered (ml) Total IV fluid infused 30 10/08/24 14:01 [email or web address] Anesthesia Postop Eval I: Summary Notes Anesthesia Complication No 10/08/24 14:01 [email or web address] Anesthesia Complication Comment: Post-operative progress note Anesthesia: Postop Eval II Evaluation Mental status: Awake and Calm Pain Level: 2 nausea: No Vomiting: No Complications Anesthesia Complication: No
== END 2024-10-08 14:44 | disposition home or self-care (01) ==
LOC: EN 12:08 → AC 12:11
PROVIDERS: PCP Student in an Organized Health Care Education/Training Program; Referring Provider Student in an Organized Health Care Education/Training Program; Visit Provider Internal Medicine Gastroenterology
PROC: 0DJ08ZZ Inspection of Upper Intestinal Tract, Via Natural or Artificial Opening Endoscopic (ICD-10-PCS; CPT 43235; principal; 2024-10-08 13:10)
DX: K21.00 Gastro-esophageal reflux disease with esophagitis, without bleeding (principal); J44.9 Chronic obstructive pulmonary disease, unspecified; K44.9 Diaphragmatic hernia without obstruction or gangrene; Z87.891 Personal history of nicotine dependence; E78.00 Pure hypercholesterolemia, unspecified; E03.9 Hypothyroidism, unspecified; Z79.890 Hormone replacement therapy; Z79.899 Other long term (current) drug therapy; Z79.01 Long term (current) use of anticoagulants
CPT/HCPCS: 43239; 88305; 88312; A4216; J2405